=== PATIENT | male | born 1945 | race Caucasian/White ===

== ENCOUNTER 2018-08-06 10:01 | Outpatient (CLI) | payer MEDICARE, BC, SELFPAY ==
[2018-08-06 12:50] LABS: Anion Gap 8.1 mmol/L (3-11); BUN 20 mg/dL (7-18); CO2 28.9 mmol/L (21.0-32.0); CREATININE 1.31 mg/dL (0.70-1.30); Calcium 9.3 mg/dL (8.5-10.1); Chloride 104 mmol/L (98-107); Estimated GFR 53.64 (mL/min/1.73m2); Glucose 98 mg/dL (70-100); Potassium 4.5 mmol/L (3.5-5.1); Sodium 141 mmol/L (136-145); Uric Acid 6.2 mg/dL (3.5-7.2)
== END 2018-08-06 10:21 ==
PROVIDERS: PCP Family Medicine; Visit Provider Family Medicine
DX: I10 Essential (primary) hypertension (principal); M10.9 Gout, unspecified
CPT/HCPCS: 36415; 80048; 84550

== ENCOUNTER 2019-07-31 02:37 | Outpatient (CLI) | payer MEDICARE, BC, SELFPAY ==
[2019-07-31 12:11] LABS: Anion Gap 8.4 mmol/L (3-11); BUN 24 mg/dL (7-18); CO2 28.6 mmol/L (21.0-32.0); CREATININE 1.31 mg/dL (0.70-1.30); Calcium 9.5 mg/dL (8.5-10.1); Chloride 108 mmol/L (98-107); Estimated GFR 53.49 (mL/min/1.73m2); Glucose 102 mg/dL (74-106); Potassium 4.9 mmol/L (3.5-5.1); Sodium 145 mmol/L (136-145)
== END 2019-07-31 02:57 ==
PROVIDERS: PCP Family Medicine; Visit Provider Family Medicine
DX: I10 Essential (primary) hypertension (principal)
CPT/HCPCS: 36415; 80048

== ENCOUNTER 2020-03-12 13:46 | Emergency (ER) | payer MEDICARE, BC, SELFPAY ==
[2020-03-12] VITALS (40 sets, daily range): BP systolic 146–174; BP diastolic 59–113; PULSE 44–62; RESP 7–18; TEMP 36.1; O2SAT 93–100
--- NOTE | 2020-03-12 13:30 | RT.EKG_ITS ---
APPROVED REPORT Exam: Resting ECG Patient Location: E HR:47 bpm ECG Measurements Heart Rate 47 AXIS VT 189 P 69 QRSd 86 QRS 53 QT 423 T 85 QTc 376 Conclusion Sinus bradycardia...rate< 60. 1mm ST depression in V2-5 and less than 1mm ST depression in I, aVL, V6. TWI in aVL. Less than 1mm ST elevation in lead III.
--- NOTE | 2020-03-12 14:01 | ED.GENADUL_ITS ---
Discharge Plan Disposition Patient Disposition: [facility] Condition: Serious Discharge Details Chief Complaint: Dizzy/Sync Clinical Impression: NSTEMI (non-ST elevated myocardial infarction) Primary Care Provider: Abdoulaye Carlton ED Provider: Yen Newby Home Meds and New Rx's Prescriptions: No Action cholecalciferol (vitamin D3) 1,000 unit capsule 1,000 unit PO DAILY RF: 0 Indomethacin [Indomethacin ER] 75 MG CAPSULE.ER 75 mg PO DAILY Qty: 30 RF: 1 Probiotic 1 EACH capsule 1 ea PO DAILY RF: 0 aspirin 81 MG tablet,chewable 81 mg PO DAILY RF: 0 ibuprofen 800 MG tablet 800 mg PO TID Qty: 90 RF: 1 atorvastatin 20 mg tablet 20 mg PO DAILY PRN (Reason: hyperlipidemia) Qty: 90 RF: 4 losartan [Cozaar] 100 mg tablet 100 mg PO DAILY Qty: 90 RF: 3 Discharge Data Discharge Date/Time-TO BE ENTERED AT DEPARTURE: 03/12/20 17:50 Medical Decision Making 1400 -- 74-year-old male with a history of hypertension presents for diaphoresis, dizziness and nausea that started at 1 PM today. Denies any complaint of chest pain or shortness of breath. EKG notes a rate of 47, sinus with [address] depression in V2 to V5 with less than [address] depression in 1, aVL, V6, with questionable less than [address] elevation in lead III and T wave inversion in aVL. Concern for ACS. Also consider GI viral illness, vertigo, electrolyte abnormality, arrhythmia. Will place an IV, bolus IV fluids, screening labs, portable chest x-ray and reassess. Labs reviewed. Troponin 0.18. Will start heparin bolus and drip. 1445 --discussed with [facility] cardiology -appears consistent with NSTEMI. Would like 300 mg Plavix p.o. Accepts patient for transfer. Accepting physician Dr. Strong. Repeat EKG obtained prior to transfer which notes slight increase in ST elevation in lead III and slight improvement in ST depression in V2 to V4. Slight increase in troponin 0.22. Patient hemodynamically stable prior to transfer. Medical Records Medical records reviewed: Yes I reviewed the patient's medical records. Imaging Data Radiologic Study: Radiologist's impression: XR Chest, 1 View Exam date and time: 03/12/2020 3:02 PM Age: 74 years old Clinical indication: Other: Nausea, dizziness, R/O acute disease TECHNIQUE: Imaging protocol: XR of the chest Views: 1 view. COMPARISON: No relevant prior studies available. FINDINGS: Lungs: Unremarkable. No consolidation. Pleural space: Unremarkable. No pleural effusion. No pneumothorax. Heart/Mediastinum: Unremarkable. No cardiomegaly. Bones/joints: Unremarkable. IMPRESSION: No acute findings. Lab Data Lab results reviewed: Yes I reviewed the patient's lab results. Labs: Laboratory Tests Range/Units 03/12/20 03/12/20 03/12/20 13:40 13:40 13:40 WBC (4.4-10.8) 10^3/uL 5.55 RBC (4.36-5.78) 10^6/uL 4.71 Hgb (13.5-17.5) g/dL 13.9 Hct (40.0-50.0) % 41.7 MCV (80-95) fL 88.5 MCH (27.0-33.0) pg 29.5 MCHC (32.0-36.0) % 33.3 RDW (11.8-14.1) % 13.4 Plt Count (130-400) 10^3/uL 150 MPV (8.0-11.0) fL 10.3 Immature Gran % 0.2 Neutrophils % 62.2 Lymphocytes % 22.9 Monocytes % 11.2 Eosinophils % 3.1 Basophils % 0.4 Nucleated RBC % % 0 Absolute Neutrophils (1.2-6.7) 10^3/uL 3.46 Absolute Lymphocytes (1.2-3.4) 10^3/uL 1.27 Absolute Monocytes (0.1-0.8) 10^3/uL 0.62 Absolute Eosinophils (0.0-0.7) 10^3/uL 0.17 Absolute Basophils (0.0-0.2) 10^3/uL 0.02 PT (9.3-11.0) sec 10.4 INR (0.9-1.1) 1.0 APTT (21.0-31.4) sec 24.7 Sodium (136-145) mmol/L 140 Potassium (3.5-5.1) mmol/L 4.3 Chloride (98-107) mmol/L 106 Carbon Dioxide (21.0-32.0) mmol/L 26.8 Anion Gap (3-11) mmol/L 7.2 BUN (7-18) mg/dL 26 H Creatinine (0.70-1.30) mg/dL 1.41 H Estimated GFR/1.73 m2 (mL/min/1.73m2) 49.00 Glucose (74-106) mg/dL 120 H Calcium (8.5-10.1) mg/dL 9.1 Magnesium (1.8-2.4) mg/dL 2.0 Total Bilirubin (0.2-1.0) mg/dL 0.6 AST (15-37) U/L 31 ALT (16-63) U/L 36 Alkaline Phosphatase (46-116) U/L 74 Troponin I (<0.06) ng/mL 0.18 H* Total Protein (6.4-8.2) g/dL 6.8 Albumin (3.4-5.0) g/dL 3.6 Lipase (73-393) U/L Range/Units 03/12/20 03/12/20 13:40 17:45 WBC (4.4-10.8) 10^3/uL RBC (4.36-5.78) 10^6/uL Hgb (13.5-17.5) g/dL Hct (40.0-50.0) % MCV (80-95) fL MCH (27.0-33.0) pg MCHC (32.0-36.0) % RDW (11.8-14.1) % Plt Count (130-400) 10^3/uL MPV (8.0-11.0) fL Immature Gran % Neutrophils % Lymphocytes % Monocytes % Eosinophils % Basophils % Nucleated RBC % % Absolute Neutrophils (1.2-6.7) 10^3/uL Absolute Lymphocytes (1.2-3.4) 10^3/uL Absolute Monocytes (0.1-0.8) 10^3/uL Absolute Eosinophils (0.0-0.7) 10^3/uL Absolute Basophils (0.0-0.2) 10^3/uL PT (9.3-11.0) sec INR (0.9-1.1) APTT (21.0-31.4) sec Sodium (136-145) mmol/L Potassium (3.5-5.1) mmol/L Chloride (98-107) mmol/L Carbon Dioxide (21.0-32.0) mmol/L Anion Gap (3-11) mmol/L BUN (7-18) mg/dL Creatinine (0.70-1.30) mg/dL Estimated GFR/1.73 m2 (mL/min/1.73m2) Glucose (74-106) mg/dL Calcium (8.5-10.1) mg/dL Magnesium (1.8-2.4) mg/dL Total Bilirubin (0.2-1.0) mg/dL AST (15-37) U/L ALT (16-63) U/L Alkaline Phosphatase (46-116) U/L Troponin I (<0.06) ng/mL 0.22 H* Total Protein (6.4-8.2) g/dL Albumin (3.4-5.0) g/dL Lipase (73-393) U/L 386 ECG Data Attestation: I personally reviewed and interpreted this ECG (s) as follows: Interpretation: #1 -- rate of 47, sinus, [address] depression in V2 through V5 with less than [address] depression in 1, aVL and V6. T wave inversion in aVL. Questionable less than [address] elevation in lead III. TN 189. QRS 86. QTc 376. #2 -- rate of 64, sinus, [address] elevation in lead III. Less than [address] depression in V2 through V5, 1 and aVL. T wave inversion in aVL. TN 170. QRS 89. QTc 409. HPI General Mode of arrival: ambulatory . Date/Time Provider Initiated Documentation: 03/12/20 13:49 . Limitations to Documentation: no limitations . Information obtained by: patient . HPI Narrative: Patient is a 74-year-old male with a history of hypertension who presents for diaphoresis, dizziness and nausea that started at 1 PM while sitting at home today. Patient states he has been sleeping well and denies any recent illness. He states when he awoke this morning he felt fine and was able to eat breakfast. He cannot describe whether this is a spinning or lightheadedness but feels that it is more lightheaded. He denies any recent travel, recent known sick contacts, fever, cough, chest pain, shortness of breath, abdominal pain, vomiting, diarrhea. Patient was given aspirin in route per EMS. Related Data Home Medications Medication Instructions Recorded Confirmed lactobacillus comb no.10 1 ea PO DAILY 07/08/17 03/12/20 [Probiotic] aspirin 81 mg PO DAILY tab-cap 07/11/17 03/12/20 ibuprofen 800 mg PO TID #90 tab-cap 01/16/18 03/12/20 cholecalciferol (vitamin D3) 25 1,000 unit PO DAILY 01/15/19 03/12/20 mcg (1,000 unit) capsule atorvastatin 20 mg tablet 20 mg PO DAILY PRN #90 tab 10/05/19 03/12/20 losartan 100 mg tablet 100 mg PO DAILY #90 tab-cap 02/23/20 03/12/20 Previous Rx's Medication Instructions Recorded ibuprofen 800 mg PO TID #90 tab-cap 01/16/18 atorvastatin 20 mg tablet 20 mg PO DAILY PRN #90 tab 10/05/19 losartan 100 mg tablet 100 mg PO DAILY #90 tab-cap 02/23/20 Allergies Allergy/AdvReac Type Severity Reaction Status Date / Time lisinopril AdvReac Unknown COUGH Verified 03/12/20 13:54 General Stated Complaint: Dizzy/Sync MATTHEW: 2 Review of Systems All systems reviewed & are unremarkable except as noted in HPI and below Constitutional Constitutional: Reports as per HPI, Denies chills and Denies fever(s) Eyes Eyes: Denies blurry vision ENT Ears, Nose, Mouth, and Throat: Reports dizziness, Denies sore throat and Denies throat swelling Cardiovascular Cardiovascular: Denies chest pain and Denies dyspnea Respiratory Respiratory: Denies cough and Denies dyspnea Gastrointestinal Gastrointestinal: Denies abdominal pain, Denies diarrhea, Reports nausea and Denies vomiting Genitourinary Genitourinary: Denies hematuria and Denies dysuria Musculoskeletal Musculoskeletal: Denies back pain and Denies numbness Integumentary/Breasts Skin/Breast: Denies lesions and Denies rash Neurologic Neurologic: Reports dizziness, Denies localized weakness and Denies numbness Allergic/Immunologic Allergic/Immunologic: Denies throat swelling COUNT INCLUDES THE [facility] Medical History (Updated 03/12/20 @ 15:19 by Yen Newby DO) Left inguinal hernia (Inactive 07/09/16) Subarachnoid hemorrhage (Inactive 04/15/12) Syncope and collapse (Inactive 10/25/08) Surgical History (Updated 07/21/19 @ 12:07 by Abdoulaye Carlton MD) TOE REPAIR (~1959) Tonsillectomy and adenoidectomy (~1951) Vasectomy (~1974) Family History (Updated 07/24/19 @ 10:45 by Chris Osborn) Mother , Age 94 OLD AGE No problems noted. Father , AGE 97 OLD AGE Essential hypertension Hyperlipidemia Sister No problems noted. Brother Essential hypertension Hypercholesterolemia Myocardial infarction Smoker Brother No problems noted. Brother No problems noted. Son No problems noted. Son No problems noted. Brother No problems noted. Maternal Grandfather No problems noted. Paternal Grandfather , age 91 No problems noted. Maternal Grandmother No problems noted. Paternal Grandmother , age 80 No problems noted. Social History (Updated 07/24/19 @ 10:43 by Chris Osborn) Smoking/Tobacco Use Status: Former Tobacco Use Quit Date: 07/22/73 Tobacco: How many years used: 10 Alcohol Intake: current Alcohol Intake frequency: 0-2 drinks per day Alcohol type: beer and wine Drug use: Never Substance use type: does not use Caregiver/Support person: No Household members: spouse Housing: house Communication Needs: None Do you need help understanding health information?: Never Pets and animals: No Sexually active: Yes Do you think of yourself as: straight/heterosexual Current gender identity: male What is your relationship status?: How often do you talk on the phone with friends or family?: once per week How often do you get together with friends or relatives?: three or more times per week How often do you attend oriental orthodox or mandaen services?: 1-3 times per year Do you belong to any clubs or organized social groups?: yes Panel score (0-1 are the most socially isolated patients): 3 What type of physical activity do you participate in: other Duration: 30-45 minutes/day Frequency: 3-4 times per week Carol/Yazidi: Rastafari Special carol needs: No Seatbelt use: always Helmet use: Yes Helmet use: always Drive intox or ride w/intox pharmacy delivery driver: No Do you feel safe at home: Yes Do you feel safe in your relationship?: Yes Exam Const General: cooperative, healthy appearing and no acute distress HENMT Head: normal to inspection Face and sinus: normal facial exam Eyes General: appearance normal, both eyes and all related structures EOM: EOM intact bilaterally Neck Neck: normal visual inspection and No submandibular swelling Lymphatic: no lymphadenopathy noted Chest Chest: normal inspection of the chest and no tenderness Resp Effort & Inspection: normal respiratory effort and able to speak in complete sentences Auscultation: clear to auscultation bilaterally Cardio Rate: bradycardic Rhythm: regular rhythm GI Inspection: normal to inspection Palpation: soft, not firm, not rigid and nontender Auscultation: normal bowel sounds Skin General skin exam: no rashes or lesions noted Neuro General: patient alert, patient awake and patient oriented x3 Cognition: normal cognition Speech: speech normal Motor: muscle tone normal throughout Sensory Exam: no sensory deficits noted Extrem General: normal to inspection, full ROM, capillary refill normal, no calf tenderness bilaterally and no edema Psych Appearance: grossly normal Mental Status: mental status grossly normal Speech and Movement: speech and movement normal Affect: normal affect Course Vital Signs Vital signs: Vital Signs Temperature 97.0 F L 03/12/20 13:50 Pulse 49 L 03/12/20 13:50 Respiratory Rate 15 03/12/20 13:50 Blood Pressure 168/73 H 03/12/20 13:50 Pulse Oximetry 96 03/12/20 13:50 Temperature 97.0 F L 03/12/20 13:50 Temperature Source Temporal Artery Scan 03/12/20 13:50 Pulse 49 L 03/12/20 13:50 Respiratory Rate 15 03/12/20 13:50 Respiratory Effort Non-Labored 03/12/20 13:53 Blood Pressure 168/73 H 03/12/20 13:50 Blood Pressure Position Supine 03/12/20 13:50 Pulse Oximetry 96 03/12/20 13:50 Oxygen Delivery Method Room Air 03/12/20 13:50 Oxygen Flow Rate 0 03/12/20 13:50 Pain Level 0 03/12/20 13:50
[2020-03-12 14:07] LABS: Abs Immature Grans 0.01 10^3/uL (0.0-0.06); Absolute Basophil Count 0.02 10^3/uL (0.0-0.2); Absolute Eosinophil Count 0.17 10^3/uL (0.0-0.7); Absolute Lymphocyte Count 1.27 10^3/uL (1.2-3.4); Absolute Monocyte Count 0.62 10^3/uL (0.1-0.8); Absolute Neutrophil Count 3.46 10^3/uL (1.2-6.7); Basophils % 0.4; Eosinophils % 3.1; HCT 41.7 % (40.0-50.0); HGB 13.9 g/dL (13.5-17.5); Immature Grans % 0.2; Lymphocytes % 22.9; MCH 29.5 pg (27.0-33.0); MCHC 33.3 % (32.0-36.0); MCV 88.5 fL (80-95); MPV 10.3 fL (8.0-11.0); Monocytes % 11.2; Neutrophils % 62.2; Nucleated RBC 0 %; Platelet Count 150 10^3/uL (130-400); RBC 4.71 10^6/uL (4.36-5.78); RDW 13.4 % (11.8-14.1); RDW-SD 43.8 fL; WBC 5.55 10^3/uL (4.4-10.8)
[2020-03-12 14:19] LABS: PTT Activated 24.7 sec (21.0-31.4); Prothrombin Time 10.4 sec (9.3-11.0)
[2020-03-12 14:22] LABS: ALT 36 U/L (16-63); AST 31 U/L (15-37); Albumin 3.6 g/dL (3.4-5.0); Alkaline Phosphatase 74 U/L (46-116); Anion Gap 7.2 mmol/L (3-11); BUN 26 mg/dL (7-18); Bilirubin, Total 0.6 mg/dL (0.2-1.0); CO2 26.8 mmol/L (21.0-32.0); CREATININE 1.41 mg/dL (0.70-1.30); Calcium 9.1 mg/dL (8.5-10.1); Chloride 106 mmol/L (98-107); Glucose 120 mg/dL (74-106); Potassium 4.3 mmol/L (3.5-5.1); Sodium 140 mmol/L (136-145); Total Protein 6.8 g/dL (6.4-8.2)
[2020-03-12 14:24] LABS: Troponin I 0.18 ng/mL (<0.06)
[2020-03-12] MEDS: Normal Saline 1,000 ML 1000 ML IV (14:28)
[2020-03-12] MEDS: Ondansetron 4 MG/2 ML VIAL IVP (14:29)
--- NOTE | 2020-03-12 15:01 | DI.RAD_ITS ---
EXAM: XR PORTABLE CHEST AP CLINICAL HISTORY: nausea, dizziness, r/o acute disease. TECHNIQUE: 2D digital imaging was performed. COMPARISON: CR CHEST 2 VIEWS PA,LAT from 03/28/2012 FINDINGS: LUNGS: Clear. No pleural abnormality seen. HEART: Normal. MEDIASTINUM: Normal. OTHER FINDINGS: None. IMPRESSION: No acute pulmonary findings. DATA REPOSITORY: RADIATION DOSE DELIVERED: Total DLP
--- NOTE | 2020-03-12 15:17 | DI.VRAD_ITS ---
PROCEDURE INFORMATION: Exam: XR Chest, 1 View Exam date and time: 03/12/2020 3:02 PM Age: 74 years old Clinical indication: Other: Nausea, dizziness, R/O acute disease TECHNIQUE: Imaging protocol: XR of the chest Views: 1 view. COMPARISON: No relevant prior studies available. FINDINGS: Lungs: Unremarkable. No consolidation. Pleural space: Unremarkable. No pleural effusion. No pneumothorax. Heart/Mediastinum: Unremarkable. No cardiomegaly. Bones/joints: Unremarkable. IMPRESSION: No acute findings. Dictated and Authenticated by: Brock Sykes MD. Ordering:RIGOBERTO Barlow MD
[2020-03-12] MEDS: Clopidogrel 300 MG TAB PO (15:21)
[2020-03-12 15:36] LABS: Lipase 386 U/L (73-393)
--- NOTE | 2020-03-12 17:30 | RT.EKG_ITS ---
APPROVED REPORT Exam: Resting ECG Patient Location: E HR:64 bpm ECG Measurements Heart Rate 64 AXIS HI 178 P 60 QRSd 89 QRS 54 QT 397 T 92 QTc 409 Conclusion Sinus rhythm...normal P axis, V-rate 60- 99 Nonspecific T abnrm, anterolateral leads...T <-0.10mV, I aVL V2-V6 Slight increase in ST elevation in lead III. Some improvement in ST depression in lead V2-4.
[2020-03-12 18:06] LABS: Troponin I 0.22 ng/mL (<0.06)
== END 2020-03-12 17:50 | disposition short-term general hospital (02) ==
LOC: ER 16:17
PROVIDERS: Emergency Provider Physician Assistant; PCP Family Medicine
DX: I21.4 Non-ST elevation (NSTEMI) myocardial infarction (principal); R42 Dizziness and giddiness; R11.0 Nausea; R61 Generalized hyperhidrosis; I10 Essential (primary) hypertension
CPT/HCPCS: 36415; 36416; 80053; 82962; 83690; 93005; 96361; 96365; 96366; 96375; 96376; 99291; 71045; 83735; 84484; 85025; 85610; 85730; 93010; J2405

== ENCOUNTER 2020-04-01 04:05 | Outpatient (CLI) | payer MEDICARE, BC, SELFPAY ==
--- NOTE | 2020-04-01 06:30 | DI.US_ITS ---
EXAM: US CAROTID CLINICAL HISTORY: F/U MILD CAROTID STENOSIS, I65.29. TECHNIQUE: Ultrasound carotids performed using grayscale, color-flow, and spectral Doppler imaging. COMPARISON: MR MRA NECK WO from 06/03/2017 MR MRA HEAD WO from 06/03/2017 MR MRI - BRAIN WO CONTRAST from 06/03/2017 FINDINGS: RIGHT CAROTID ARTERY: Plaque: [id number] soft plaque from the common carotid bulb in to the proximal internal carotid artery. LEFT CAROTID ARTERY: Plaque: Mild soft plaque in the common carotid bulb and proximal internal carotid artery. VERTEBRAL ARTERIES: Antegrade flow. Measurements: R Bulb: 96 PS/24 ED R CCA: 103 PS / 24 ED R ECA: 112 PS / 11 ED R ICA Prox: 165 PS /30 ED R ICA Mid: 112 PS / 27 ED R ICA Distal: 100 PS /34 ED R Vert: 59 PS / 17 ED R SVR: 1.6 L Bulb: 82 PS /21 ED L CCA: 92 PS / 21 ED L ECA: 79 PS /8 ED L ICA Prox:62 PS / 22 ED L ICA Mid: 79PS / 29 ED L ICA Distal: 102 PS / 42 ED L Vert: 62 PS / 23 ED L SVR: 1.1 IMPRESSION: Left: Mild soft plaque. No evidence for hemodynamically significant carotid stenosis. Right: Internal carotid artery [id number] soft plaque with systolic velocity elevation consiste nt with 50-69 percent stenosis. Criteria for Carotid Stenosis: Normal: ICA PSV <125 cm/s no plaque or intimal thickening is visible. <50% stenosis: ICA PSV <125 cm/s and plaque or intimal thickening is visible. 50-69% stenosis: ICA PSV is 125-250 cm/s and plaque is visible. >70% stenosis to near occlusion: ICA PSV >250 cm/s with visible plaque and luminal narrowing. DATA REPOSITORY:
== END 2020-04-01 04:25 ==
PROVIDERS: PCP Nurse Practitioner; Visit Provider Family Medicine
DX: I65.21 Occlusion and stenosis of right carotid artery (principal)
CPT/HCPCS: U0003; 93880

== ENCOUNTER 2020-04-01 08:32 | Outpatient (CLI) | payer MEDICARE, BC, SELFPAY ==
[2020-04-02 20:29] LABS: COVID-19 RT-PCR Result NEGATIVE (Negative)
== END 2020-04-01 08:52 ==
PROVIDERS: PCP Nurse Practitioner; Visit Provider Family Medicine
DX: Z11.59 Encounter for screening for other viral diseases (principal); Z01.818 Encounter for other preprocedural examination
CPT/HCPCS: U0003

== ENCOUNTER → 2020-04-08 09:29 | Outpatient (BNVA) | payer MEDICARE, BC, SELFPAY | PROVIDERS: PCP Nurse Practitioner; Referring Provider Family Medicine; Visit Provider Internal Medicine Cardiovascular Disease | DX: I21.4 Non-ST elevation (NSTEMI) myocardial infarction (principal); I10 Essential (primary) hypertension; Z95.818 Presence of other cardiac implants and grafts; Z79.02 Long term (current) use of antithrombotics/antiplatelets | CPT/HCPCS: 99204; 99215 ==

== ENCOUNTER 2020-04-20 13:16 | Outpatient (RCR) | payer MEDICARE, BC, SELFPAY | END 2020-04-20 23:59 | disposition home or self-care (01) | LOC: CR 13:16 | PROVIDERS: PCP Nurse Practitioner; Visit Provider Family Medicine | DX: I25.2 Old myocardial infarction (principal); Z51.89 Encounter for other specified aftercare | CPT/HCPCS: S9472 ==

== ENCOUNTER 2020-05-20 11:00 | Outpatient (RCR) | payer MEDICARE, BC, SELFPAY | END 2020-05-21 23:59 | disposition home or self-care (01) | LOC: CR 11:00 | PROVIDERS: PCP Nurse Practitioner; Visit Provider Family Medicine | DX: I25.2 Old myocardial infarction (principal); Z51.89 Encounter for other specified aftercare | CPT/HCPCS: S9472 ==

== ENCOUNTER 2020-05-22 01:23 | Outpatient (RCR) | payer MEDICARE, BC, SELFPAY | END 2020-06-20 23:59 | disposition home or self-care (01) | LOC: CR 01:23 | PROVIDERS: PCP Nurse Practitioner; Visit Provider Family Medicine | DX: I25.2 Old myocardial infarction (principal); Z51.89 Encounter for other specified aftercare | CPT/HCPCS: S9472 ==

== ENCOUNTER 2020-08-03 04:48 | Outpatient (CLI) | payer MEDICARE, BC, SELFPAY ==
[2020-08-03 10:19] LABS: Hemoglobin A1C 5.3 % (<5.7)
[2020-08-03 10:52] LABS: CREATININE 1.82 mg/dL (0.70-1.30); Calculated LDL 59 mg/dL (<100); Cholesterol 111 mg/dL (<200); HDL Cholesterol 37 mg/dL (40-60); Potassium 4.6 mmol/L (3.5-5.1); Triglyceride 76 mg/dL (<150)
== END 2020-08-03 05:08 ==
PROVIDERS: PCP Nurse Practitioner; Visit Provider Nurse Practitioner
DX: E78.5 Hyperlipidemia, unspecified (principal); I10 Essential (primary) hypertension; R73.03 Prediabetes
CPT/HCPCS: 36415; 80061; 82565; 83036; 84132

== ENCOUNTER 2020-09-21 16:13 | Outpatient (REF) | payer MEDICARE, BC, SELFPAY ==
[2020-09-21 22:08] LABS: Abs Immature Grans 0.01 10^3/uL (0.0-0.06); Absolute Basophil Count 0.02 10^3/uL (0.0-0.2); Absolute Eosinophil Count 0.26 10^3/uL (0.0-0.7); Absolute Lymphocyte Count 0.75 10^3/uL (1.2-3.4); Absolute Monocyte Count 0.61 10^3/uL (0.1-0.8); Absolute Neutrophil Count 4.79 10^3/uL (1.2-6.7); Basophils % 0.3; HCT 37.9 % (40.0-50.0); HGB 12.6 g/dL (13.5-17.5); Immature Grans % 0.2; Lymphocytes % 11.6; MCH 30.3 pg (27.0-33.0); MCHC 33.2 % (32.0-36.0); MCV 91.1 fL (80-95); MPV 11.1 fL (8.0-11.0); Monocytes % 9.5; Neutrophils % 74.4; Nucleated RBC 0 %; Platelet Count 168 10^3/uL (130-400); RBC 4.16 10^6/uL (4.36-5.78); RDW 13.7 % (11.8-14.1); RDW-SD 46.2 fL; WBC 6.44 10^3/uL (4.4-10.8)
[2020-09-21 22:21] LABS: ALT 35 U/L (16-63); AST 26 U/L (15-37); Albumin 3.8 g/dL (3.4-5.0); Alkaline Phosphatase 93 U/L (46-116); Anion Gap 9.4 mmol/L (3-11); BUN 38 mg/dL (7-18); Bilirubin, Total 0.6 mg/dL (0.2-1.0); CO2 25.6 mmol/L (21.0-32.0); CREATININE 2.1 mg/dL (0.70-1.30); Calcium 8.8 mg/dL (8.5-10.1); Chloride 109 mmol/L (98-107); Estimated GFR 30.94 (mL/min/1.73m2); Glucose 100 mg/dL (74-106); Potassium 4.5 mmol/L (3.5-5.1); Sodium 144 mmol/L (136-145); Total Protein 6.8 g/dL (6.4-8.2)
[2020-09-22 17:31] LABS: PSA, Diagnostic 5.8 ng/mL (0.0-6.5)
== END 2020-09-21 16:14 | disposition home or self-care (01) ==
LOC: LBN 16:13
PROVIDERS: PCP Nurse Practitioner; Visit Provider Emergency Medicine
DX: C61 Malignant neoplasm of prostate (principal); R19.00 Intra-abdominal and pelvic swelling, mass and lump, unspecified site
CPT/HCPCS: 80053; 84153; 85025

== ENCOUNTER 2020-09-22 13:35 | Emergency (ER) | payer MEDICARE, BC, SELFPAY ==
[2020-09-22 13:44] VITALS: BP 212/90; PULSE 56; RESP 16; TEMP 36.3; O2SAT 95
--- NOTE | 2020-09-22 14:05 | W.ED.GENAD ---
Discharge Plan Disposition Patient Disposition: HOME Condition: Stable Discharge Details Clinical Impression: Urinary retention Primary Care Provider: Kate Lopes ED Provider: Roman Young Home Meds and New Rx's Prescriptions: Continued cholecalciferol (vitamin D3) 25 mcg (1,000 unit) capsule 2,000 unit PO DAILY RF: 0 atorvastatin 80 mg tablet 80 mg PO DAILY Qty: 90 RF: 4 clopidogrel 75 mg tablet 75 mg PO DAILY Qty: 90 RF: 4 losartan [Cozaar] 100 mg tablet 100 mg PO DAILY Qty: 90 RF: 3 Indomethacin [Indomethacin ER] 75 MG CAPSULE.ER 75 mg PO DAILY Qty: 30 RF: 1 aspirin 81 MG tablet,chewable 81 mg PO DAILY RF: 0 Probiotic 20 billion cell capsule 20,000 mmu cells PO .QOD RF: 0 nitroglycerin 0.4 mg tablet, sublingual 0.4 mg SL Q5M PRN (Reason: chest pain) Qty: 30 RF: 2 metoprolol succinate 25 mg tablet extended release 24 hr 25 mg PO HS RF: 0 Discharge Instructions Instructions: Urinary Retention in Men (ED), Plummer Catheter Placement and Care (ED) Additional Instructions: Plummer catheter placed and you drained over 3300 cc of urine. Please watch for new or worsening symptoms and return immediately to the ER. Otherwise I recommend contacting your primary care provider who sent her here to the ER in the first place. They will set you up with outpatient urology follow-up for your ongoing symptoms. You are being discharged from the ER with a Plummer catheter in place, management of the Plummer catheter and teaching was given. Medical Decision Making 74-year-old gentleman who had an outpatient work-up initiated, outpatient CT obtained today which revealed enlarged prostate causing urinary bladder outlet obstruction with a markedly distended urinary bladder. We received a call from Dr. Brown requesting that a Plummer catheter be placed and she will have the patient up with outpatient urology in follow-up. The patient was able to give a urine sample, bladder scan post void was greater than 999. Indwelling Plummer catheter placed, over 3300 cc of urine drained. Patient did present quite hypertensive however given his impressive urinary retention I am not surprised. Blood pressure was trending downward after the catheter was placed and urine drained. Upon reviewing his record from yesterday it does appear as though his primary care office is aware of his hypertension and plans to follow this. Patient remains asymptomatic. He was given teaching of his Plummer catheter and how to care for it. His primary care team will be expediting his outpatient work-up for his ongoing symptoms through urology. He was encouraged to return to the ER for new or worsening symptoms. Patient has no additional questions or concerns upon discharge. Medical Records Medical records reviewed: Yes I reviewed the patient's medical records. Imaging Data Radiologic Study: Attestation: I personally reviewed and interpreted this imaging study as follows: Imaging: CT Scan Radiologist's impression: CT imaging of abdomen and pelvis read by radiology as enlarged prostate gland causing urinary bladder outlet obstruction with a markedly distended urinary bladder present. These findings cause marked hydroureteronephrosis and delayed enhancement of the kidneys. The prostate gland is heterogeneous and a prostate mass should be considered. Urology consult is recommended for further evaluation. Findings consistent with hepatic hemangioma. Lab Data Lab results reviewed: Yes I reviewed the patient's lab results. Lab results narrative: Laboratory Tests Range/Units 09/22/20 14:00 Urine Color (Yellow) Yellow Urine Clarity (Clear) Sl cloudy Urine pH (5-8) 5.5 Ur Specific [place] (1.005-1.025) 1.015 Urine Protein (Negative) mg/dL Negative Urine Ketones (Negative) mg/dL Negative Urine Blood (Negative) Negative Urine Nitrite (Negative) Negative Urine Bilirubin (Negative) Negative Urine Urobilinogen (Up TO 0.2) EU/dL 0.2 Ur Leukocyte Esterase (Negative) Negative Urine Glucose (Negative) mg/dL Negative HPI General Mode of arrival: ambulatory. Date/Time Provider Initiated Documentation: 09/22/20 14:03. Limitations to Documentation: no limitations. Information obtained by: patient. HPI Narrative: This is a 74-year-old gentleman with Shaan history that includes MA, hypertension, hyperlipidemia, sent to the ER for Plummer catheter placement. Patient was seen by his primary care provider, was thought to have an abdominal mass, had recent laboratory values including urinalysis. Was set up for outpatient CT imaging today, CT completed and results were sent to his primary care provider. We received a call from Dr. Brown stating the patient will require a indwelling Plummer catheter for his BPH and urinary retention. Labs have already been obtained, no need to repeat now. They will set the patient up with outpatient urology follow-up for his ongoing symptoms. Patient denies recent illness or trauma. Denies chest pain, abdominal pain, nausea, vomiting, dysuria, hematuria, back pain. Related Data Home Medications Medication Instructions Recorded Confirmed aspirin 81 mg PO DAILY tab-cap 07/11/17 09/22/20 lactobacillus comb no.10 20 20,000 mmu cells PO .QOD cap 03/22/20 09/22/20 billion cell capsule atorvastatin 80 mg tablet 80 mg PO DAILY #90 tab 04/08/20 09/22/20 clopidogrel 75 mg tablet 75 mg PO DAILY #90 tab 04/08/20 09/22/20 losartan 100 mg tablet 100 mg PO DAILY #90 tab-cap 04/08/20 09/22/20 cholecalciferol (vitamin D3) 25 2,000 unit PO DAILY cap 07/26/20 09/22/20 mcg (1,000 unit) capsule nitroglycerin 0.4 mg sublingual 0.4 mg SL Q5M PRN #30 tab 09/16/20 09/22/20 tablet metoprolol succinate 25 mg PO HS 09/22/20 09/22/20 Previous Rx's Medication Instructions Recorded atorvastatin 80 mg tablet 80 mg PO DAILY #90 tab 04/08/20 clopidogrel 75 mg tablet 75 mg PO DAILY #90 tab 04/08/20 losartan 100 mg tablet 100 mg PO DAILY #90 tab-cap 04/08/20 nitroglycerin 0.4 mg sublingual 0.4 mg SL Q5M PRN #30 tab 09/16/20 tablet Allergies Allergy/AdvReac Type Severity Reaction Status Date / Time lisinopril AdvReac Unknown COUGH Verified 09/22/20 13:50 General Stated Complaint: Urinary MATTHEW: 3 Review of Systems Constitutional Constitutional: Denies fever(s) Cardiovascular Cardiovascular: Denies chest pain and Denies dyspnea Respiratory Respiratory: Denies dyspnea Gastrointestinal Gastrointestinal: Denies abdominal pain, Denies nausea and Denies vomiting Genitourinary Genitourinary: Denies hematuria, Reports difficulty urinating, Denies flank pain, Reports nocturia, Denies testicular pain, Denies urinary hesitancy, Reports urinary incontinence and Denies urinary urgency Musculoskeletal Musculoskeletal: Denies back pain Integumentary/Breasts Skin/Breast: Denies rash [facility] Medical History Abdominal mass Gout (06/10/14) Left inguinal hernia (07/09/16) not problematic to pt at this time Smoker Quit 1974 Subarachnoid hemorrhage (04/15/12) Syncope and collapse (10/25/08) Surgical History TOE REPAIR (~1959) Tonsillectomy and adenoidectomy (~1951) Vasectomy (~1974) Family History Mother , Age 94 OLD AGE No problems noted. Father , AGE 97 OLD AGE Essential hypertension Hyperlipidemia Sister No problems noted. Brother Essential hypertension Hypercholesterolemia Myocardial infarction Smoker Brother No problems noted. Brother No problems noted. Son No problems noted. Son No problems noted. Brother No problems noted. Maternal Grandfather No problems noted. Paternal Grandfather , age 91 No problems noted. Maternal Grandmother No problems noted. Paternal Grandmother , age 80 No problems noted. Social History Smoking/Tobacco Use Status: Former Tobacco Use Quit Date: 07/22/73 Tobacco: How many years used: 10 Smoking risk assessment performed?: Yes Alcohol Intake: current Alcohol Intake frequency: 0-2 drinks per day Alcohol type: beer and wine Drug use: Never Substance use type: does not use Caregiver/Support person: No Household members: spouse Housing: house Communication Needs: None Do you need help understanding health information?: Never Pets and animals: No Sexually active: Yes Do you think of yourself as: straight/heterosexual Current gender identity: male What is your relationship status?: How often do you talk on the phone with friends or family?: three or more times per week How often do you get together with friends or relatives?: never How often do you attend tenriism or yarsanism services?: 1-3 times per year Do you belong to any clubs or organized social groups?: yes Panel score (0-1 are the most socially isolated patients): 3 What type of physical activity do you participate in: walking and other Duration: 60-90 minutes/day Frequency: daily Carol/Quaker: Protestant Special carol needs: No Seatbelt use: always Helmet use: Yes Helmet use: always Drive intox or ride w/intox 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 Do you feel safe at home: Yes Do you feel safe in your relationship?: Yes Exam Const General: cooperative, healthy appearing, comfortable and no acute distress Orientation: alert, awake and oriented x3 HENMT Head: normal to inspection, normocephalic and atraumatic Eyes General: appearance normal, both eyes and all related structures Conjunctivae: conjunctivae normal Sclera: sclerae normal Neck Neck: normal visual inspection, trachea midline and supple Resp Effort & Inspection: normal respiratory effort and able to speak in complete sentences Auscultation: clear to auscultation bilaterally Cardio Rate: regular rate Rhythm: regular rhythm GI Inspection: distended Palpation: firm other (Suprapubic region), no guarding, mass (Suprapubic region), no pulsatile masses and nontender Auscultation: normal bowel sounds Male General Exam: Yes normal external exam Penis: normal penis Meatus: meatus normal Scrotum: scrotum normal Testes: normal Back/Spine/Pelvis Back: no CVA tenderness and No back tenderness Skin General skin exam: no rashes or lesions noted Neuro General: patient alert, patient awake, moves all extremities and no focal motor deficits Cognition: normal cognition Speech: speech normal Gait: normal gait Sensory Exam: no sensory deficits noted Psych Appearance: grossly normal Mental Status: mental status grossly normal Course Vital Signs Vital signs: Vital Signs Temperature 36.3 C L 09/22/20 13:44 Pulse 56 L 09/22/20 13:44 Respiratory Rate 16 09/22/20 13:44 Blood Pressure 212/90 H 09/22/20 13:44 Pulse Oximetry 95 09/22/20 13:44 Temperature 36.3 C L 09/22/20 13:44 Temperature Source Oral 09/22/20 13:44 Pulse 56 L 09/22/20 13:44 Respiratory Rate 16 09/22/20 13:44 Respiratory Effort 09/22/20 13:53 Blood Pressure 212/90 H 09/22/20 13:44 Blood Pressure Position Sitting 09/22/20 13:44 Pulse Oximetry 95 09/22/20 13:44 Oxygen Delivery Method Room Air 09/22/20 13:44 Oxygen Flow Rate 0 09/22/20 13:44 Pain Level 0 09/22/20 13:54 Comment 09/22/20 13:44
[2020-09-22 14:10] LABS: Bilirubin Negative (Negative); Blood Negative (Negative); Clarity Sl Cloudy (Clear); Glucose Negative (Negative); Ketones Negative (Negative); Leukocyte Esterase Negative (Negative); Nitrite Negative (Negative); Specific Gravity 1.015 (1.005-1.025); Urobilinogen 0.2 EU/dL (Up TO 0.2); pH 5.5 (5-8)
[2020-09-22] MEDS: Lidocaine 2% Jelly 6 ML SYR (14:35)
[2020-09-22 15:08] VITALS: BP 188/104; PULSE 55; RESP 16; TEMP 36.5; O2SAT 98
== END 2020-09-22 15:44 | disposition home or self-care (01) ==
PROVIDERS: Emergency Provider Physician Assistant; PCP Nurse Practitioner
DX: N40.1 Benign prostatic hyperplasia with lower urinary tract symptoms (principal); R33.8 Other retention of urine
CPT/HCPCS: 51702; 99283; 74177; 81003; 99282

== ENCOUNTER 2020-09-22 13:50 | Outpatient (CLI) | payer MEDICARE, BC, SELFPAY ==
--- NOTE | 2020-09-22 09:15 | DI.CT_ITS ---
EXAM: CT ABDOMEN PELVIS W CLINICAL HISTORY: abd mass, R19.00 TECHNIQUE: Imaging Protocol: Axial computed tomography images with coronal and sagittal reformatted images were created and reviewed CONTRAST MATERIAL: Intravenous: Omnipaque 350 Contrast volume:100 mL Oral: Yes COMPARISON: No exams were available for comparison FINDINGS: ABDOMEN: Lung Bases: Normal where visualized. Liver: Normal density. There are several tiny hypodensities within the liver. They are too small for further characterization but likely reflect small cysts. There is a 2.7 x 2.1 x 1.8 cm mass in the posterior segment of the right lobe of the liver. The lesion shows peripheral enhancement on the art erial images which progressively fills in on the venous phase images. On the 10 minutes delayed imag es, the lesion is completely opacified. The findings are consistent with a hepatic hemangioma. Portal, Superior Mesenteric, and Splenic Veins: Unremarkable. Gallbladder and Biliary Tract: No radiodense calculus or dilation. Pancreas: Normal density, no abnormal calcifications or inflammatory process. Spleen: Normal. Adrenals: No masses seen. Kidneys: Normal size, contour and axis. No renal stones. There is diffuse bilateral delayed enhancem ent of the kidneys with marked dilatation of the renal pelvis and renal ureters all the way to the le mike of the urinary bladder. The urinary bladder is markedly to enlarged distended measuring 17.3 cm transverse by 16.3 cm AP x 24.1 cm craniocaudad. This appears to be due to a markedly enlarged prost ate gland. The prostate gland is heterogeneous and impinges upon the base of the urinary bladder. T his may reflect benign hypertrophy but a prostate mass cannot be excluded. Abdominal Aorta: Abdominal portion non-dilated. Mild atherosclerosis. Bowel: No obstruction or bowel wall thickening. Appendix is unremarkable. Diverticulosis of the desce nding and sigmoid colon is noted but no evidence of acute diverticulitis. Small hiatal hernia. Peritoneal Cavity: No ascites, collection or mesenteric inflammatory response. No free air. Lymph Nodes: Within normal limits. Bones: Degenerative changes of the hips and lumbar spine are noted. Soft Tissues: Small fat containing umbilical hernia. PELVIS: Bladder: Please see the above discussion in the kidneys. Reproductive Organs: Please see the above discussion in the kidneys. Lymph Nodes: Within normal limits. Bones: Within normal limits for the patient's age. IMPRESSION: 1. Enlarged prostate gland causing urinary bladder outlet obstruction with a markedly distended urina ry bladder present. The findings cause marked hydroureteronephrosis and delayed enhancement of the k idneys. The prostate gland is heterogeneous and a prostate mass should be considered. Urology consu lt is recommended for further evaluation. 2. Findings consistent with hepatic hemangioma. 3. Findings were discussed with Dr Brown on the date of the examination. RADIATION DOSE DELIVERED: 1,798.04mGy.cm Total DLP DATA REPOSITORY: All CT scans at this facility are submitted to the National Radiology Data Registry (NRDR) Dose Index Registry (DIR) with the [employer] ([employer]). RADIATION OPTIMIZATION: All CT scans at this facility use at least one of these dose optimization te chniques: automated exposure control; mA and/or kV adjustment per patient size (includes targeted exa ms where dose is matched to clinical indication); or iterative reconstruction.
== END 2020-09-22 14:10 ==
PROVIDERS: PCP Nurse Practitioner; Visit Provider Emergency Medicine
DX: N40.1 Benign prostatic hyperplasia with lower urinary tract symptoms; N13.8 Other obstructive and reflux uropathy
CPT/HCPCS: 74177

== ENCOUNTER → 2020-09-30 08:21 | Outpatient (BNVA) | payer MEDICARE, BC, SELFPAY | PROVIDERS: PCP Nurse Practitioner; Referring Provider Nurse Practitioner; Visit Provider Urology | DX: R33.8 Other retention of urine (principal); N13.30 Unspecified hydronephrosis | CPT/HCPCS: 99204; 99213 ==

== ENCOUNTER 2020-10-06 02:42 | Outpatient (CLI) | payer MEDICARE, BC, SELFPAY ==
[2020-10-06 11:17] LABS: Anion Gap 7.5 mmol/L (3-11); BUN 40 mg/dL (7-18); CO2 27.5 mmol/L (21.0-32.0); CREATININE 1.7 mg/dL (0.70-1.30); Calcium 9.2 mg/dL (8.5-10.1); Chloride 105 mmol/L (98-107); Estimated GFR 39.49 (mL/min/1.73m2); Glucose 108 mg/dL (74-106); Potassium 4.6 mmol/L (3.5-5.1); Sodium 140 mmol/L (136-145)
== END 2020-10-06 02:43 | disposition home or self-care (01) ==
PROVIDERS: PCP Nurse Practitioner; Visit Provider Emergency Medicine
DX: N13.30 Unspecified hydronephrosis (principal); R33.8 Other retention of urine
CPT/HCPCS: 36415; 80048; 99212

== ENCOUNTER → 2020-10-07 12:23 | Outpatient (BNVA) | payer MEDICARE, BC, SELFPAY | PROVIDERS: PCP Nurse Practitioner; Referring Provider Nurse Practitioner; Visit Provider Urology | DX: R33.8 Other retention of urine (principal) | CPT/HCPCS: 99212; 99442 ==

== ENCOUNTER → 2020-10-10 11:31 | Outpatient (BNVA) | payer MEDICARE, BC, SELFPAY | PROVIDERS: PCP Nurse Practitioner; Referring Provider Nurse Practitioner; Visit Provider Internal Medicine Cardiovascular Disease | DX: I25.2 Old myocardial infarction (principal); N13.30 Unspecified hydronephrosis; Z79.01 Long term (current) use of anticoagulants; Z95.818 Presence of other cardiac implants and grafts; I10 Essential (primary) hypertension | CPT/HCPCS: 99214 ==

== ENCOUNTER → 2020-11-09 11:22 | Outpatient (BNVA) | payer MEDICARE, BC, SELFPAY | PROVIDERS: PCP Nurse Practitioner; Referring Provider Nurse Practitioner; Visit Provider Nurse Practitioner Gerontology | DX: R33.8 Other retention of urine (principal) | CPT/HCPCS: 99214 ==

== ENCOUNTER 2020-11-09 13:27 | Outpatient (REF) | payer MEDICARE, BC, SELFPAY ==
[2020-11-09 14:19] LABS: BUN 35 mg/dL (7-18); CREATININE 1.6 mg/dL (0.70-1.30); Estimated GFR 42.35 (mL/min/1.73m2)
== END 2020-11-09 13:28 | disposition home or self-care (01) ==
LOC: LBN 13:27
PROVIDERS: PCP Nurse Practitioner; Visit Provider Nurse Practitioner Gerontology
DX: R33.9 Retention of urine, unspecified (principal)
CPT/HCPCS: 84520; 82565

== ENCOUNTER → 2020-12-08 14:47 | Outpatient (BNVA) | payer MEDICARE, BC, SELFPAY | PROVIDERS: PCP Nurse Practitioner; Referring Provider Nurse Practitioner; Visit Provider Nurse Practitioner Gerontology | DX: N13.30 Unspecified hydronephrosis (principal); R33.8 Other retention of urine; I10 Essential (primary) hypertension | CPT/HCPCS: 99215 ==

== ENCOUNTER 2021-02-06 03:27 | Outpatient (CLI) | payer MEDICARE, BC, SELFPAY ==
[2021-02-06 11:57] LABS: Anion Gap 8.5 mmol/L (3-11); BUN 28 mg/dL (7-18); CO2 28.5 mmol/L (21.0-32.0); CREATININE 1.5 mg/dL (0.70-1.30); Calcium 9.3 mg/dL (8.5-10.1); Chloride 107 mmol/L (98-107); Glucose 95 mg/dL (74-106); Potassium 4.8 mmol/L (3.5-5.1); Sodium 144 mmol/L (136-145)
== END 2021-02-06 03:28 | disposition home or self-care (01) ==
LOC: LBO 03:27
PROVIDERS: PCP Nurse Practitioner; Visit Provider Nurse Practitioner Gerontology
DX: I10 Essential (primary) hypertension (principal); R33.9 Retention of urine, unspecified; N13.30 Unspecified hydronephrosis
CPT/HCPCS: 36415; 80048

== ENCOUNTER → 2021-02-09 14:24 | Outpatient (BNVA) | payer MEDICARE, BC, SELFPAY | PROVIDERS: PCP Nurse Practitioner; Referring Provider Nurse Practitioner; Visit Provider Nurse Practitioner Gerontology | DX: N13.30 Unspecified hydronephrosis (principal); R33.8 Other retention of urine; I10 Essential (primary) hypertension | CPT/HCPCS: 99215 ==

== ENCOUNTER → 2021-03-20 13:06 | Outpatient (BNVA) | payer MEDICARE, BC, SELFPAY | PROVIDERS: PCP Nurse Practitioner; Referring Provider Nurse Practitioner; Visit Provider Urology | DX: R33.8 Other retention of urine (principal); Z46.6 Encounter for fitting and adjustment of urinary device | CPT/HCPCS: 51702; 99213 ==

== ENCOUNTER → 2021-03-29 08:00 | Outpatient (BNVA) | payer MEDICARE, BC, SELFPAY | PROVIDERS: PCP Nurse Practitioner; Referring Provider Nurse Practitioner; Visit Provider Nurse Practitioner Gerontology | DX: R33.8 Other retention of urine (principal) | CPT/HCPCS: 99213 ==

== ENCOUNTER 2021-05-09 02:43 | Outpatient (CLI) | payer MEDICARE, BC, SELFPAY ==
[2021-05-09 13:01] LABS: ALT 36 U/L (16-63); AST 25 U/L (15-37); Albumin 3.7 g/dL (3.4-5.0); Alkaline Phosphatase 98 U/L (46-116); Anion Gap 5.6 mmol/L (3-11); BUN 29 mg/dL (7-18); Bilirubin, Total 0.5 mg/dL (0.2-1.0); CO2 30.4 mmol/L (21.0-32.0); CREATININE 1.7 mg/dL (0.70-1.30); Calcium 9.1 mg/dL (8.5-10.1); Chloride 105 mmol/L (98-107); Estimated GFR 39.38 (mL/min/1.73m2); Glucose 104 mg/dL (74-106); Potassium 4.5 mmol/L (3.5-5.1); Sodium 141 mmol/L (136-145); Total Protein 6.7 g/dL (6.4-8.2)
== END 2021-05-09 02:44 | disposition home or self-care (01) ==
PROVIDERS: PCP Nurse Practitioner; Visit Provider Nurse Practitioner Gerontology
DX: R33.9 Retention of urine, unspecified (principal); N13.30 Unspecified hydronephrosis
CPT/HCPCS: 36415; 80053

== ENCOUNTER → 2021-05-11 14:22 | Outpatient (BNVA) | payer MEDICARE, BC, SELFPAY | PROVIDERS: PCP Nurse Practitioner; Visit Provider Nurse Practitioner Gerontology | DX: R33.8 Other retention of urine (principal); N13.30 Unspecified hydronephrosis; R94.4 Abnormal results of kidney function studies | CPT/HCPCS: 99214 ==

== ENCOUNTER 2021-08-04 01:43 | Outpatient (CLI) | payer MEDICARE, SELFPAY ==
--- NOTE | 2021-08-04 08:00 | DI.US_ITS ---
Exam(s) US RENAL EXAM: US RENAL CLINICAL HISTORY: monitor hydro,urinary retention,r33.9 TECHNIQUE: Ultrasound of both kidneys performed using standard protocol. COMPARISON: US US CAROTID from 04/01/2020 FINDINGS: RIGHT KIDNEY: Measures 8.8 cm in length. There is a 1.9 x 1.7 cm slightly lower than midpole cyst in the right kidn ey. Normal cortical thickness and corticomedullary differentiation .No solid masses No intrarenal calculi nor hydronephrosis. LEFT KIDNEY: Measures 9.9 cm in length. No cysts evident. Normal cortical thickness and corticomedullary differen tiaion. No solids masses. No intrarenal calculi nor hydonephrosis. URINARY BLADDER: Prevoid volume is 234 cc Patient is unable to void (self catheterization patient without supplies) No evidence of bladder mass nor diverticuli. Prostate gland is enlarged, measuring 5.6 x 5.7 by 5.9 cm Ureterovesical jets: Left visualized. Right not visualized IMPRESSION: 1. There is no hydronephrosis on either side in this patient self caths. 2. There is a 1.9 cm benign cyst in the right kidney. No other focal renal findings. No calculi. Enlarged prostate gland DATA REPOSITORY:
== END 2021-08-04 02:03 ==
PROVIDERS: PCP Nurse Practitioner; Visit Provider Nurse Practitioner Gerontology
DX: R33.9 Retention of urine, unspecified (principal); N28.1 Cyst of kidney, acquired; N40.0 Benign prostatic hyperplasia without lower urinary tract symptoms
CPT/HCPCS: 76770

== ENCOUNTER 2021-08-04 04:27 | Outpatient (CLI) | payer MEDICARE, SELFPAY ==
[2021-08-04 16:42] LABS: BUN 29 mg/dL (7-18); CREATININE 1.6 mg/dL (0.70-1.30); Calculated LDL 52 mg/dL (<100); Cholesterol 115 mg/dL (<200); Estimated GFR 42.24 (mL/min/1.73m2); HDL Cholesterol 38 mg/dL (40-60); Triglyceride 128 mg/dL (<150)
== END 2021-08-04 04:28 | disposition home or self-care (01) ==
LOC: LBO 04:27
PROVIDERS: PCP Nurse Practitioner; Visit Provider Nurse Practitioner Gerontology
DX: R31.9 Hematuria, unspecified (principal); R33.9 Retention of urine, unspecified; E78.5 Hyperlipidemia, unspecified
CPT/HCPCS: 36415; 80061; 84520; 82565

== ENCOUNTER → 2021-08-10 15:21 | Outpatient (BNVA) | payer MEDICARE, SELFPAY | PROVIDERS: PCP Nurse Practitioner; Referring Provider Nurse Practitioner; Visit Provider Nurse Practitioner Gerontology | DX: R33.9 Retention of urine, unspecified (principal); N18.30 Chronic kidney disease, stage 3 unspecified; N13.30 Unspecified hydronephrosis | CPT/HCPCS: 99214 ==

== ENCOUNTER → 2021-10-09 11:28 | Outpatient (BNVA) | payer MEDICARE, SELFPAY | PROVIDERS: PCP Nurse Practitioner; Referring Provider Nurse Practitioner; Visit Provider Internal Medicine Cardiovascular Disease | DX: I25.2 Old myocardial infarction (principal); I10 Essential (primary) hypertension; E78.5 Hyperlipidemia, unspecified | CPT/HCPCS: 99214; 99213 ==

== ENCOUNTER → 2021-11-20 09:52 | Outpatient (BNVA) | payer MEDICARE, SELFPAY | PROVIDERS: PCP Nurse Practitioner; Referring Provider Nurse Practitioner; Visit Provider Nurse Practitioner Gerontology | DX: R33.8 Other retention of urine (principal); I12.9 Hypertensive chronic kidney disease with stage 1 through stage 4 chronic kidney disease, or unspecified chronic kidney disease; N18.30 Chronic kidney disease, stage 3 unspecified; N13.30 Unspecified hydronephrosis | CPT/HCPCS: 99214 ==

== ENCOUNTER 2022-02-06 02:01 | Outpatient (CLI) | payer MEDICARE, SELFPAY ==
[2022-02-06 10:46] LABS: BUN 29 mg/dL (7-18); CREATININE 1.7 mg/dL (0.70-1.30); Estimated GFR 39.28 (mL/min/1.73m2)
== END 2022-02-06 02:02 | disposition home or self-care (01) ==
LOC: LBO 02:01
PROVIDERS: PCP Nurse Practitioner; Visit Provider Nurse Practitioner Gerontology
DX: N18.30 Chronic kidney disease, stage 3 unspecified (principal); N13.30 Unspecified hydronephrosis; R33.9 Retention of urine, unspecified
CPT/HCPCS: 36415; 84520; 82565

== ENCOUNTER → 2022-02-13 15:16 | Outpatient (BNVA) | payer MEDICARE, SELFPAY | PROVIDERS: PCP Nurse Practitioner; Visit Provider Nurse Practitioner Gerontology | DX: R33.8 Other retention of urine (principal); N18.30 Chronic kidney disease, stage 3 unspecified; N13.30 Unspecified hydronephrosis; R31.9 Hematuria, unspecified; N40.0 Benign prostatic hyperplasia without lower urinary tract symptoms | CPT/HCPCS: 36415; 99215 ==

== ENCOUNTER 2022-02-13 16:49 | Outpatient (REF) | payer MEDICARE, SELFPAY ==
[2022-02-14 19:01] LABS: PSA, Screening 6.1 ng/mL (<=6.5)
== END 2022-02-13 16:50 | disposition home or self-care (01) ==
LOC: LBN 16:49
PROVIDERS: PCP Nurse Practitioner; Visit Provider Nurse Practitioner Gerontology
DX: N40.0 Benign prostatic hyperplasia without lower urinary tract symptoms (principal); Z12.5 Encounter for screening for malignant neoplasm of prostate
CPT/HCPCS: 84153

== ENCOUNTER 2022-02-27 03:25 | Outpatient (CLI) | payer MEDICARE, SELFPAY ==
[2022-02-27 09:52] LABS: Anion Gap 5.3 mmol/L (3-11); BUN 19 mg/dL (7-18); CO2 28.7 mmol/L (21.0-32.0); CREATININE 1.6 mg/dL (0.70-1.30); Calcium 8.8 mg/dL (8.5-10.1); Chloride 108 mmol/L (98-107); Estimated GFR 42.12 (mL/min/1.73m2); Glucose 106 mg/dL (74-106); Potassium 4.4 mmol/L (3.5-5.1); Sodium 142 mmol/L (136-145)
[2022-02-27 09:58] LABS: BUN 18 mg/dL (7-18); Uric Acid 5.6 mg/dL (3.5-7.2)
== END 2022-02-27 03:26 | disposition home or self-care (01) ==
LOC: LBO 03:25
PROVIDERS: Nurse Practitioner Gerontology; PCP Nurse Practitioner; Visit Provider Nurse Practitioner
DX: N18.30 Chronic kidney disease, stage 3 unspecified (principal); R33.9 Retention of urine, unspecified; M10.9 Gout, unspecified
CPT/HCPCS: 36415; 80048; 84520; 84550

== ENCOUNTER 2022-08-07 02:56 | Outpatient (CLI) | payer MEDICARE, SELFPAY ==
[2022-08-07 12:11] LABS: CREATININE 1.6 mg/dL (0.70-1.30)
== END 2022-08-07 02:57 | disposition home or self-care (01) ==
LOC: LBO 02:56
PROVIDERS: Visit Provider Nurse Practitioner Gerontology
DX: N18.30 Chronic kidney disease, stage 3 unspecified (principal); R33.9 Retention of urine, unspecified
CPT/HCPCS: 36415; 82565

== ENCOUNTER → 2022-08-14 15:21 | Outpatient (BNVA) | payer MEDICARE, SELFPAY | PROVIDERS: Visit Provider Nurse Practitioner Gerontology | DX: N40.1 Benign prostatic hyperplasia with lower urinary tract symptoms (principal); R33.9 Retention of urine, unspecified; R31.9 Hematuria, unspecified; N18.30 Chronic kidney disease, stage 3 unspecified | CPT/HCPCS: 99214 ==

== ENCOUNTER 2022-10-08 08:25 | Outpatient (CLI) | payer MEDICARE, SELFPAY ==
--- NOTE | 2022-10-08 08:15 | RT.EKG_ITS ---
APPROVED REPORT Exam: Resting ECG Reason for Exam: PR Patient Location: O HR:53 bpm ECG Measurements Heart Rate 53 AXIS MT 157 P 66 QRSd 91 QRS 37 QT 406 T 63 QTc 382 Conclusion Sinus rhythm...normal P axis, V-rate 50- 99 Normal Electrocardiogram
== END 2022-10-08 08:26 | disposition home or self-care (01) ==
LOC: DI.CARD 08:26
PROVIDERS: PCP Family Medicine; Visit Provider Internal Medicine Cardiovascular Disease
DX: I25.2 Old myocardial infarction (principal)
CPT/HCPCS: 93010

== ENCOUNTER → 2022-10-08 10:23 | Outpatient (BNVA) | payer MEDICARE, SELFPAY | PROVIDERS: PCP Family Medicine; Visit Provider Internal Medicine Cardiovascular Disease | DX: I25.10 Atherosclerotic heart disease of native coronary artery without angina pectoris (principal); I25.2 Old myocardial infarction; I65.29 Occlusion and stenosis of unspecified carotid artery; E78.5 Hyperlipidemia, unspecified; Z95.5 Presence of coronary angioplasty implant and graft | CPT/HCPCS: 93005; 99214 ==

== ENCOUNTER 2022-10-18 01:04 | Outpatient (CLI) | payer MEDICARE, SELFPAY ==
--- NOTE | 2022-10-18 07:15 | DI.US_ITS ---
Exam(s) US CAROTID EXAM: US CAROTID CLINICAL HISTORY: Moderate right carotid stenosis,I65.29. TECHNIQUE: Ultrasound carotids performed using grayscale, color-flow, and spectral Doppler imaging. COMPARISON: US US CAROTID from 04/01/2020 FINDINGS: RIGHT CAROTID ARTERY: Plaque: Minimal, mid CCA. Velocity elevation: None. LEFT CAROTID ARTERY: Plaque: Minimal. Velocity elevation: None. VERTEBRAL ARTERIES: Antegrade flow. Measurements: R Bulb: 112.9cm/s PS / 11.2cm/s ED R CCA: 107cm/s PS / 17.6cm/s ED R ECA: 141.2cm/s PS / 4.7cm/s ED R ICA Prox: 72cm/s PS / 17.9cm/s ED R ICA Mid: 71.7cm/s PS / 21.1cm/s ED R ICA Distal: 56.2cm/s PS /16.7cm/s ED R Vert: 37cm/s PS / 7.3cm/s ED R SVR: 1.1 R DVR: 0.6 L Bulb: 52.8cm/s PS / 12.7cm/s ED L CCA: 94.5cm/s PS / 20.3cm/s ED L ECA: 91.4cm/s PS / 7.2cm/s ED L ICA Prox: 57cm/s PS / 17.4cm/s ED L ICA Mid: 76.4cm/s PS / 21.5cm/s ED L ICA Distal: 74.8cm/s PS / 24.8cm/s ED L Vert: 52.3cm/s PS / 13.2cm/s ED L SVR: 0.8 L DVR: 1.1 IMPRESSION: Minimal plaque right CCA. No visible internal carotid artery plaque.. No visual evidence of stenosi s. No significant velocity elevations.. Criteria for Carotid Stenosis: Normal: ICA PSV <125 cm/s no plaque or intimal thickening is visible. <50% stenosis: ICA PSV <125 cm/s and plaque or intimal thickening is visible. 50-69% stenosis: ICA PSV is 125-250 cm/s and plaque is visible. >70% stenosis to near occlusion: ICA PSV >250 cm/s with visible plaque and luminal narrowing. DATA REPOSITORY:
== END 2022-10-18 01:24 ==
LOC: DI 01:04
PROVIDERS: PCP Family Medicine; Visit Provider Internal Medicine Cardiovascular Disease
DX: I65.21 Occlusion and stenosis of right carotid artery (principal)
CPT/HCPCS: 93880

== ENCOUNTER 2022-11-08 03:31 | Outpatient (CLI) | payer MEDICARE, SELFPAY ==
[2022-11-08 09:38] LABS: HCT 45.9 % (40.0-50.0); HGB 15.3 g/dL (13.5-17.5); MCH 29.4 pg (27.0-33.0); MCHC 33.3 % (32.0-36.0); MCV 88 fL (80-95); MPV 9.3 fL (8.0-11.0); Platelet Count 189 10^3/uL (130-400); RDW-SD 42.2 fL; WBC 6.62 10^3/uL (4.4-10.8)
[2022-11-08 10:20] LABS: ALT 40 U/L (16-63); AST 25 U/L (15-37); Albumin 3.7 g/dL (3.4-5.0); Alkaline Phosphatase 101 U/L (46-116); Anion Gap 5.9 mmol/L (3-11); BUN 26 mg/dL (7-18); Bilirubin, Total 0.4 mg/dL (0.2-1.0); CO2 28.1 mmol/L (21.0-32.0); CREATININE 1.7 mg/dL (0.70-1.30); Calcium 9.2 mg/dL (8.5-10.1); Calculated LDL 59 mg/dL (<100); Chloride 106 mmol/L (98-107); Cholesterol 122 mg/dL (<200); Estimated GFR 41.01 (mL/min/1.73m2); Glucose 105 mg/dL (74-106); HDL Cholesterol 40 mg/dL (40-60); Potassium 4.8 mmol/L (3.5-5.1); Sodium 140 mmol/L (136-145); Total Protein 7.2 g/dL (6.4-8.2); Triglyceride 119 mg/dL (<150)
[2022-11-08 10:32] LABS: Uric Acid 5.8 mg/dL (3.5-7.2)
== END 2022-11-08 03:32 | disposition home or self-care (01) ==
LOC: LBO 03:31
PROVIDERS: PCP Family Medicine; Visit Provider Family Medicine
DX: I25.10 Atherosclerotic heart disease of native coronary artery without angina pectoris (principal)
CPT/HCPCS: 36415; 80053; 80061; 85027; 84550

== ENCOUNTER 2023-02-05 02:22 | Outpatient (CLI) | payer MEDICARE, SELFPAY ==
[2023-02-05 09:41] LABS: BUN 25 mg/dL (7-18); CREATININE 1.8 mg/dL (0.70-1.30); Estimated GFR 38.05 (mL/min/1.73m2)
[2023-02-05 20:20] LABS: PSA, Diagnostic 5.5 ng/mL (<=6.5)
== END 2023-02-05 02:23 | disposition home or self-care (01) ==
LOC: LBO 02:22
PROVIDERS: PCP Family Medicine; Visit Provider Nurse Practitioner Gerontology
DX: R33.9 Retention of urine, unspecified (principal); N40.0 Benign prostatic hyperplasia without lower urinary tract symptoms
CPT/HCPCS: 36415; 84520; 82565; 84153

== ENCOUNTER → 2023-02-12 14:52 | Outpatient (BNVA) | payer MEDICARE, SELFPAY | PROVIDERS: PCP Family Medicine; Visit Provider Nurse Practitioner Gerontology | DX: N40.1 Benign prostatic hyperplasia with lower urinary tract symptoms (principal); I12.9 Hypertensive chronic kidney disease with stage 1 through stage 4 chronic kidney disease, or unspecified chronic kidney disease; R31.9 Hematuria, unspecified; N13.30 Unspecified hydronephrosis; N18.30 Chronic kidney disease, stage 3 unspecified | CPT/HCPCS: 99214 ==

== ENCOUNTER → 2023-04-01 07:45 | Outpatient (BNVA) | payer MEDICARE, SELFPAY | PROVIDERS: PCP Family Medicine; Referring Provider Family Medicine; Visit Provider Nurse Practitioner Gerontology | DX: Z46.6 Encounter for fitting and adjustment of urinary device (principal); R33.9 Retention of urine, unspecified; N13.30 Unspecified hydronephrosis | CPT/HCPCS: 51702 ==

== ENCOUNTER → 2023-04-15 07:49 | Outpatient (BNVA) | payer MEDICARE, SELFPAY | PROVIDERS: PCP Family Medicine; Referring Provider Family Medicine; Visit Provider Nurse Practitioner Gerontology | DX: Z46.6 Encounter for fitting and adjustment of urinary device (principal); N40.1 Benign prostatic hyperplasia with lower urinary tract symptoms; R33.9 Retention of urine, unspecified | CPT/HCPCS: 99211 ==

== ENCOUNTER 2023-04-15 16:06 | Outpatient (REF) | payer MEDICARE, SELFPAY ==
[2023-04-15 19:50] LABS: BUN 23 mg/dL (7-18); CREATININE 1.6 mg/dL (0.70-1.30); Calcium 9.3 mg/dL (8.5-10.1); Chloride 103 mmol/L (98-107); Estimated GFR 43.83 (mL/min/1.73m2); Glucose 114 mg/dL (74-106); Potassium 4.3 mmol/L (3.5-5.1); Sodium 138 mmol/L (136-145)
== END 2023-04-15 16:07 | disposition home or self-care (01) ==
LOC: NCHCN 16:06
PROVIDERS: PCP Family Medicine; Visit Provider Family Medicine
DX: I10 Essential (primary) hypertension (principal)
CPT/HCPCS: 80048

== ENCOUNTER 2023-08-13 03:50 | Outpatient (CLI) | payer MEDICARE, SELFPAY ==
[2023-08-13 11:31] LABS: BUN 32 mg/dL (7-18); CREATININE 1.8 mg/dL (0.70-1.30); Estimated GFR 38.05 (mL/min/1.73m2)
== END 2023-08-13 03:51 | disposition home or self-care (01) ==
LOC: LBO 03:50
PROVIDERS: PCP Family Medicine; Visit Provider Nurse Practitioner Gerontology
DX: N18.30 Chronic kidney disease, stage 3 unspecified (principal); R33.9 Retention of urine, unspecified
CPT/HCPCS: 36415; 84520; 82565

== ENCOUNTER → 2023-08-20 14:23 | Outpatient (BNVA) | payer MEDICARE, SELFPAY | PROVIDERS: PCP Family Medicine; Visit Provider Nurse Practitioner Gerontology | DX: R33.8 Other retention of urine (principal); N18.30 Chronic kidney disease, stage 3 unspecified; N40.0 Benign prostatic hyperplasia without lower urinary tract symptoms; N13.30 Unspecified hydronephrosis | CPT/HCPCS: 99213 ==

== ENCOUNTER → 2023-10-07 10:33 | Outpatient (BNVA) | payer MEDICARE, SELFPAY | PROVIDERS: PCP Family Medicine; Visit Provider Internal Medicine Cardiovascular Disease | DX: I25.10 Atherosclerotic heart disease of native coronary artery without angina pectoris (principal); I65.29 Occlusion and stenosis of unspecified carotid artery; I25.2 Old myocardial infarction; I10 Essential (primary) hypertension; E78.5 Hyperlipidemia, unspecified | CPT/HCPCS: 99213 ==

== ENCOUNTER → 2023-10-30 12:20 | Outpatient (BNVA) | payer MEDICARE, SELFPAY | PROVIDERS: PCP Family Medicine; Visit Provider Nurse Practitioner Gerontology | DX: R33.8 Other retention of urine (principal); N40.0 Benign prostatic hyperplasia without lower urinary tract symptoms; N18.30 Chronic kidney disease, stage 3 unspecified; N13.30 Unspecified hydronephrosis | CPT/HCPCS: 51702; 99213 ==

== ENCOUNTER → 2023-11-19 09:18 | Outpatient (BNVA) | payer MEDICARE, SELFPAY | PROVIDERS: PCP Family Medicine; Visit Provider Nurse Practitioner Gerontology | DX: R33.8 Other retention of urine (principal) | CPT/HCPCS: 99213 ==

== ENCOUNTER 2024-01-28 04:38 | Outpatient (CLI) | payer MEDICARE, SELFPAY ==
[2024-01-28 11:45] LABS: BUN 27 mg/dL (7-18); CREATININE 1.8 mg/dL (0.70-1.30); Estimated GFR 37.82 (mL/min/1.73m2)
== END 2024-01-28 04:39 | disposition home or self-care (01) ==
LOC: LBO 04:38
PROVIDERS: PCP Family Medicine; Visit Provider Nurse Practitioner Gerontology
DX: N18.30 Chronic kidney disease, stage 3 unspecified (principal); R33.9 Retention of urine, unspecified
CPT/HCPCS: 36415; 84520; 82565

== ENCOUNTER → 2024-02-04 14:43 | Outpatient (BNVA) | payer MEDICARE, SELFPAY | PROVIDERS: PCP Family Medicine; Visit Provider Nurse Practitioner Gerontology | DX: R33.8 Other retention of urine (principal); N40.0 Benign prostatic hyperplasia without lower urinary tract symptoms; N18.30 Chronic kidney disease, stage 3 unspecified; N13.30 Unspecified hydronephrosis | CPT/HCPCS: 99213 ==

== ENCOUNTER → 2024-03-24 09:52 | Outpatient (BNVA) | payer MEDICARE, SELFPAY | PROVIDERS: PCP Family Medicine; Visit Provider Nurse Practitioner Gerontology | DX: R33.8 Other retention of urine (principal) | CPT/HCPCS: 51702 ==

== ENCOUNTER → 2024-04-06 07:50 | Outpatient (BNVA) | payer MEDICARE, SELFPAY | PROVIDERS: PCP Family Medicine; Referring Provider Family Medicine; Visit Provider Nurse Practitioner Gerontology | DX: R33.8 Other retention of urine (principal) | CPT/HCPCS: 99212 ==

== ENCOUNTER 2024-06-23 16:35 | Outpatient (REF) | payer MEDICARE, SELFPAY ==
[2024-06-23 22:49] LABS: ALT 26 U/L (16-63); AST 18 U/L (15-37); Albumin 3.5 g/dL (3.4-5.0); Alkaline Phosphatase 110 U/L (46-116); Anion Gap 6.4 mmol/L (3-11); BUN 23 mg/dL (7-18); Bilirubin, Total 0.37 mg/dL (0.2-1.0); CO2 28.6 mmol/L (21.0-32.0); CREATININE 1.7 mg/dL (0.70-1.30); Calcium 9.3 mg/dL (8.5-10.1); Chloride 105 mmol/L (98-107); Glucose 95 mg/dL (74-106); LDL CHOLESTEROL 122 mg/dL (<100); Potassium 4.7 mmol/L (3.5-5.1); Sodium 140 mmol/L (136-145); Total Protein 6.8 g/dL (6.4-8.2)
[2024-06-23 22:59] LABS: Uric Acid 5.3 mg/dL (3.5-7.2)
[2024-06-24 19:04] LABS: PSA, Diagnostic 6.4 ng/mL (<=6.5)
== END 2024-06-23 16:36 | disposition home or self-care (01) ==
LOC: NCHCN 16:35
PROVIDERS: PCP Family Medicine; Visit Provider Family Medicine
DX: I25.10 Atherosclerotic heart disease of native coronary artery without angina pectoris (principal); N40.1 Benign prostatic hyperplasia with lower urinary tract symptoms
CPT/HCPCS: 80053; 83721; 84153; 84550

== ENCOUNTER 2024-06-24 10:29 | Outpatient (CLI) | payer MEDICARE, SELFPAY ==
--- NOTE | 2024-06-24 | DI.RAD_ITS ---
Exam(s) XR HIP RT COMPLETE AP PELVIS EXAM: XR HIP RT COMPLETE AP PELVIS CLINICAL HISTORY: M25.551 Pain in Rt hip. TECHNIQUE: 2D digital imaging was performed. Two views COMPARISON: CT CT ABDOMEN PELVIS W from 09/22/2020 FINDINGS: BONES: No acute fracture is present. No bony destructive lesion is seen. JOINTS: No dislocation present. Severe narrowing of the superior hip joint spaces bilaterally. Pro minent bilateral acetabular spurring. Spurring greatest at the superior acetabula. SOFT TISSUE: Vascular calcifications. Surgical clips in the scrotal region. IMPRESSION: Severe degenerative change of both hips. DATA REPOSITORY: RADIATION DOSE DELIVERED:
== END 2024-06-24 10:49 ==
LOC: DI 10:29
PROVIDERS: PCP Family Medicine; Visit Provider Family Medicine
DX: M16.0 Bilateral primary osteoarthritis of hip (principal)
CPT/HCPCS: 73502

== ENCOUNTER → 2024-07-21 09:58 | Outpatient (BNVA) | payer MEDICARE, SELFPAY | PROVIDERS: PCP Family Medicine; Referring Provider Family Medicine | DX: M16.11 Unilateral primary osteoarthritis, right hip (principal); M16.12 Unilateral primary osteoarthritis, left hip | CPT/HCPCS: 99213 ==

== ENCOUNTER → 2024-08-11 14:50 | Outpatient (BNVA) | payer MEDICARE, SELFPAY | PROVIDERS: PCP Family Medicine; Visit Provider Nurse Practitioner Gerontology | DX: R33.8 Other retention of urine (principal); N40.0 Benign prostatic hyperplasia without lower urinary tract symptoms; N18.30 Chronic kidney disease, stage 3 unspecified; N13.30 Unspecified hydronephrosis | CPT/HCPCS: 99213 ==

== ENCOUNTER → 2024-10-05 08:47 | Outpatient (BNVA) | payer MEDICARE, SELFPAY | PROVIDERS: PCP Family Medicine; Visit Provider Registered Nurse | DX: I25.10 Atherosclerotic heart disease of native coronary artery without angina pectoris (principal); I25.2 Old myocardial infarction; I10 Essential (primary) hypertension; I65.29 Occlusion and stenosis of unspecified carotid artery; E78.5 Hyperlipidemia, unspecified | CPT/HCPCS: 99214 ==

== ENCOUNTER 2024-11-18 09:34 | Emergency (ER) | payer MEDICARE, SELFPAY ==
[2024-11-18 09:35] VITALS: BP 169/66; PULSE 65; RESP 15; TEMP 37; O2SAT 98
--- NOTE | 2024-11-18 09:45 | DI.US_ITS ---
Exam(s) US LOWER EXTREMITY VENOUS RT EXAM: US LOWER EXTREMITY VENOUS RT CLINICAL HISTORY: Leg pain, recent travel. TECHNIQUE: Lower extremity venous ultrasound performed using grayscale, color-flow, and spectral Do ppler analysis. COMPARISON: No exams were available for comparison FINDINGS: The common femoral, femoral and popliteal veins demonstrate normal compressibility, augmentation, and color Doppler. The posterior tibial and peroneal veins are patent. No saphenous vein thrombosis or other superficial venous thrombosis is seen. No hematoma or De Santiago's cyst is seen. IMPRESSION: Negative lower extremity ultrasound. No evidence of DVT. DATA REPOSITORY:
--- NOTE | 2024-11-18 09:45 | DI.RAD_ITS ---
Exam(s) XR TIB/FIB RT EXAM: XR TIB/FIB RT CLINICAL HISTORY: Leg pain. TECHNIQUE: 2D digital imaging was performed. Two views. COMPARISON: No exams were available for comparison FINDINGS: BONES: No acute fracture is present. No bony destructive lesion is seen. Visualized portion of knee a nd ankle joints are unremarkable. SOFT TISSUE: Normal vascular calcifications. IMPRESSION: Unremarkable radiographs of the right tibia and fibula. DATA REPOSITORY: RADIATION DOSE DELIVERED:
--- NOTE | 2024-11-18 09:51 | ED.GENADUL_ITS ---
Discharge Plan Disposition Patient Disposition: Home Condition: Stable Discharge Details Clinical Impression: Pain of right calf Primary Care Provider: Sameer Stevenson ED Provider: Huma Yi Home Meds and New Rx's Prescriptions: Continued allopurinol 100 mg tablet 50 mg PO DAILY Qty: 60 0RF Rx Instructions: Take 1/2 pill daily. colchicine 0.6 mg tablet 0.6 mg PO BID PRN Rx Instructions: 2 tablets now, follow with 1 tablet in 1 hour. Then, 1 tablet twice daily until symptoms resolve. After symptoms resolve 1 tablet every other day cholecalciferol (vitamin D3) 25 mcg (1,000 unit) capsule 2,000 unit PO DAILY amlodipine 5 mg tablet 5 mg PO DAILY Qty: 90 4RF aspirin 81 MG tablet,chewable 81 mg PO DAILY nitroglycerin 0.4 mg tablet, sublingual 0.4 mg SL Q5M PRN (Reason: chest pain) Qty: 30 2RF Rx Instructions: do not exceed 3 doses per episode losartan [Cozaar] 100 mg tablet 100 mg PO DAILY Qty: 90 3RF metoprolol succinate 25 mg tablet extended release 24 hr See Rx Instructions .ROUTE .COMPLEX Qty: 90 3RF Dose Instruction: TAKE ONE TABLET BY MOUTH AT BEDTIME Rx Instructions: TAKE ONE TABLET BY MOUTH AT BEDTIME No Action Probiotic 20 billion cell capsule 20,000 mmu cells PO .QOD Discharge Instructions Instructions: Opioids for Short-Term Treatment of Pain ED, Leg Pain (ED) Additional Instructions: At this time no evidence of a blood clot in your veins, no evidence of any bony abnormality in your tibia or fibula. Please use the crutches as needed for weightbearing. Apply Dre wrap daily for compression. You may alternate ice and heat. Keep raised above the level of your heart when sitting or lying down. You may also try some light stretching exercises. A referral for physical therapy was placed please call them to schedule an appointment. Follow up with primary care provider in 3-5 days if this continues please discuss further evaluation with a CT. Return to ED sooner if any worsening or concerns. Thank you for allowing us to care for you today. Stand Alone Forms: Physical Therapy Referral Referrals: Sameer Stevenson MD [Primary Care Provider] - 5 days Discharge Data Discharge Date/Time-TO BE ENTERED AT DEPARTURE: 11/18/24 11:55 HPI General Mode of arrival: ambulatory . Date/Time Provider Initiated Documentation: 11/18/24 09:40 . Limitations to Documentation: no limitations . Information obtained by: patient, RN notes reviewed and old records reviewed . HPI Narrative: 78-year-old male presents to the ER with right calf pain for the last week. Recently traveling by car. Denies noting any swelling or erythema. Does have a history of gout, subarachnoid hemorrhage, left inguinal hernia, CAD, osteoarthritis, carotid stenosis, hypertension high cholesterol. Was recently given atorvastatin which has caused leg cramps in the past. Patient reports that the pain is only with weightbearing and ambulation. No significant pain with knee extension. At rest he has decreased pain. Denies any chest pain shortness of breath or any other associated symptoms. Related Data Home Medications ?Medication ?Instructions ?Recorded ?Confirmed aspirin 81 mg chewable tablet 81 mg PO DAILY 07/11/17 11/18/24 lactobacillus comb no.10 20 20,000 mmu cells PO .QOD 03/22/20 11/18/24 billion cell capsule (Probiotic) cholecalciferol (vitamin D3) 25 2,000 unit PO DAILY 07/26/20 11/18/24 mcg (1,000 unit) capsule nitroglycerin 0.4 mg sublingual 0.4 mg sublingual Q5M PRN chest 09/16/20 11/18/24 tablet pain #30 tabs amlodipine 5 mg tablet 5 mg PO DAILY #90 tabs 08/17/21 11/18/24 losartan 100 mg tablet (Cozaar) 100 mg PO DAILY #90 tab-caps 11/20/21 11/18/24 allopurinol 100 mg tablet 50 mg (1/2 x 100 mg) PO DAILY #60 02/15/22 11/18/24 tabs colchicine 0.6 mg tablet 0.6 mg PO BID PRN 10/07/23 11/18/24 metoprolol succinate 25 mg See Rx Instructions .Route 05/14/24 11/18/24 tablet,extended release 24 hr .COMPLEX #90 tabs Previous Rx's ?Medication ?Instructions ?Recorded nitroglycerin 0.4 mg sublingual 0.4 mg sublingual Q5M PRN chest 09/16/20 tablet pain #30 tabs amlodipine 5 mg tablet 5 mg PO DAILY #90 tabs 08/17/21 losartan 100 mg tablet (Cozaar) 100 mg PO DAILY #90 tab-caps 11/20/21 allopurinol 100 mg tablet 50 mg (1/2 x 100 mg) PO DAILY #60 02/15/22 tabs metoprolol succinate 25 mg See Rx Instructions .Route 05/14/24 tablet,extended release 24 hr .COMPLEX #90 tabs Allergies Allergy/AdvReac Type Severity Reaction Status Date / Time atorvastatin AdvReac Intermediate Other (See Verified 11/18/24 09:42 Comment) rosuvastatin AdvReac Intermediate Other (See Verified 11/18/24 09:42 Comment) lisinopril AdvReac Unknown COUGH Verified 11/18/24 09:42 General Stated Complaint: Vascular MATTHEW: 3 Review of Systems All systems reviewed & are unremarkable except as noted in HPI and below Musculoskeletal Musculoskeletal: Reports as per HPI Exam Extrem Right lower extremity: normal capillary refill and lower leg Details: tenderness Location: other (Lateral mid calf); no abrasions, no lacerations and no unusual warmth Course Vital Signs Vital signs: Vital Signs Temperature 37.0 C 11/18/24 09:35 Pulse 65 11/18/24 09:35 Respiratory Rate 15 11/18/24 09:35 Blood Pressure 169/66 H 11/18/24 09:35 Pulse Oximetry 98 11/18/24 09:35 Temperature 37.0 C 11/18/24 09:35 Temperature Source Oral 11/18/24 09:35 Pulse 65 11/18/24 09:35 Respiratory Rate 15 11/18/24 09:35 Blood Pressure 169/66 H 11/18/24 09:35 Blood Pressure Position Sitting 11/18/24 09:35 Pulse Oximetry 98 11/18/24 09:35 Oxygen Delivery Method Room Air 11/18/24 09:35 Oxygen Flow Rate 0 11/18/24 09:35 Pain Level 1 11/18/24 09:35 Comment Pain jumps to an 8 when standing on it 11/18/24 09:35 Medical Decision Making 78-year-old male here with right leg pain differential diagnose includes but not limited to DVT, claudication, occult fracture, sprain Ultrasound right lower extremity ordered to rule out DVT, also x-ray of tib-fib ordered to rule out occult fracture or osteoarthritis. Negative ultrasound for DVT negative tib-fib x-ray. After reevaluation and further discussion while patient is sitting there and his feet appear cyanotic, cool to the touch cap refill 4 seconds. After extensive discussion regarding discharge versus further evaluation they are in agreement with further evaluation with CT with IV contrast to eval vascular status. I did also discuss crutches, pain control and physical therapy if it did he did if it is determined that is not vascular. Labs ordered including CBC CMP PT PTT, CTA right lower extremity. Asked to return to the room again for discussion with patient and his . They are now questioning whether they should just be discharged and follow-up with her primary care which I think is reasonable at this time. I will give Dre wrap crutches physical therapy referral and instructions to follow-up with PCP or to return if any worsening. At rest with the patient's feet up on the bed his feet are pink warm and dry. Cap refill less than [address]. Patient given crutches, Dre wrap referral for physical therapy. Discussed tricked return instructions. Verbalized understanding. Discussed RICE procedures. This text was generated using Vizibilityation system, please disregard any oddities of phrase or misspellings. Medical Records Medical records reviewed: Yes I reviewed the patient's medical records. Quality:SDOH Health Related Social Needs: No Data to Display PFSH All Active Problems (Updated 11/18/24 @ 11:09 by Huma Yi, GEMA) Pain of right calf (Acute) Osteoarthritis, hip, bilateral (Acute) Coronary artery disease (Chronic) Regurgitation and rechewing of food (Acute) CKD (chronic kidney disease) stage 3, GFR 30-59 ml/min (Acute) Hydronephrosis (Acute) Urinary retention (Acute) Enlarged prostate (Acute) History of heart attack (Acute) 2019 Ejection fraction was preserved. He had an LAD stent and has nonobstructive disease in his left circumflex that was not addressed but was IFR negative. Followed by. Dr. hays/ Ren Carotid stenosis (Acute) 2019- 50%-69% ICA stenosis, mod soft plaques r>L Benign hypertension (Acute 06/24/13) Hyperlipidemia (Acute) Ptosis of left eyelid (Acute 05/30/17) Medical History Smoker Quit 1974 Syncope and collapse (10/25/08) Gout (06/10/14) Left inguinal hernia (07/09/16) not problematic to pt at this time Subarachnoid hemorrhage (04/15/12) Surgical History Vasectomy (~1974) Tonsillectomy and adenoidectomy (~1951) TOE REPAIR (~1960) Family History Mother , Age 94 OLD AGE No problems noted. Father , AGE 97 OLD AGE Essential hypertension Hyperlipidemia Sister No problems noted. Brother Essential hypertension Hypercholesterolemia Myocardial infarction Smoker Brother No problems noted. Brother No problems noted. Son No problems noted. Son No problems noted. Brother No problems noted. Maternal Grandfather No problems noted. Paternal Grandfather , age 91 No problems noted. Maternal Grandmother No problems noted. Paternal Grandmother , age 80 No problems noted. Social History Smoking/Tobacco Use Status: Former Tobacco Use tobacco type: cigarettes and pipe Quit Date: 07/22/73 Tobacco: How many years used: 10 Second Hand Exposure: Yes Smoking risk assessment performed?: Yes Alcohol Intake: current Alcohol Intake frequency: a few times a week Alcohol type: beer and wine Drug use: Never Substance use type: does not use Caregiver/Support person: No Household members: spouse Housing: house Communication Needs: None Do you need help understanding health information?: Never Pets and animals: Yes Pets and animals: cat(s) Sexually active: Yes Do you think of yourself as: straight/heterosexual Current gender identity: male What is your relationship status?: How often do you talk on the phone with friends or family?: three or more times per week How often do you get together with friends or relatives?: three or more times per week How often do you attend advent or restoration services?: 1-3 times per year Do you belong to any clubs or organized social groups?: yes Panel score (0-1 are the most socially isolated patients): 3 What type of physical activity do you participate in: walking Duration: 30-45 minutes/day Frequency: 3-4 times per week Carol/Adventism: No preference Special carol needs: No Seatbelt use: always Helmet use: Yes Helmet use: always Drive intox 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
[2024-11-18 10:34] VITALS: BP 139/67; PULSE 59; RESP 16; O2SAT 98
[2024-11-18] MEDS: MORPHine IR 15 MG TAB, 4 TABS/BTL PO (11:37)
[2024-11-18 11:40] VITALS: BP 158/64; PULSE 50; RESP 16; O2SAT 97
== END 2024-11-18 11:55 | disposition home or self-care (01) ==
PROVIDERS: Emergency Provider Registered Nurse Emergency; PCP Family Medicine
DX: M79.661 Pain in right lower leg (principal); I25.10 Atherosclerotic heart disease of native coronary artery without angina pectoris; I25.2 Old myocardial infarction; I12.9 Hypertensive chronic kidney disease with stage 1 through stage 4 chronic kidney disease, or unspecified chronic kidney disease; N18.30 Chronic kidney disease, stage 3 unspecified; E78.5 Hyperlipidemia, unspecified; Z95.5 Presence of coronary angioplasty implant and graft; Z79.82 Long term (current) use of aspirin; Z87.891 Personal history of nicotine dependence
CPT/HCPCS: 80053; 99284; 73590; 83735; 85025; 85610; 85730; 93971

== ENCOUNTER → 2024-11-23 09:28 | Outpatient (BNVA) | payer MEDICARE, SELFPAY | PROVIDERS: PCP Family Medicine; Referring Provider Family Medicine; Visit Provider Registered Nurse | DX: I25.10 Atherosclerotic heart disease of native coronary artery without angina pectoris (principal) | CPT/HCPCS: 99215 ==

== ENCOUNTER 2024-11-23 18:46 | Outpatient (REF) | payer MEDICARE, SELFPAY ==
[2024-11-23 21:24] LABS: Abs Immature Grans 0.02 10^3/uL (0.0-0.06); Absolute Basophil Count 0.04 10^3/uL (0.0-0.2); Absolute Eosinophil Count 0.28 10^3/uL (0.0-0.7); Absolute Lymphocyte Count 1.19 10^3/uL (1.2-3.4); Absolute Monocyte Count 0.72 10^3/uL (0.1-0.8); Absolute Neutrophil Count 4.74 10^3/uL (1.2-6.7); Basophils % 0.6 %; HCT 45.6 % (40.0-50.0); HGB 15.4 g/dL (13.5-17.5); Immature Grans % 0.3 %; MCH 29.9 pg (27.0-33.0); MCHC 33.8 % (32.0-36.0); MCV 89 fL (80-95); MPV 10.7 fL (8.0-11.0); Monocytes % 10.3 %; Neutrophils % 67.8 %; Platelet Count 193 10^3/uL (130-400); RBC 5.15 10^6/uL (4.36-5.78); RDW 13.9 % (11.8-14.1); RDW-SD 44.8 fL; WBC 6.99 10^3/uL (4.4-10.8)
[2024-11-23 21:34] LABS: ALT 36 U/L (16-63); AST 26 U/L (15-37); Albumin 3.9 g/dL (3.4-5.0); Alkaline Phosphatase 115 U/L (46-116); Anion Gap 4.7 mmol/L (3-11); BUN 31 mg/dL (7-18); Bilirubin, Total 0.4 mg/dL (0.2-1.0); CO2 30.3 mmol/L (21.0-32.0); CREATININE 1.6 mg/dL (0.70-1.30); Calcium 9.5 mg/dL (8.5-10.1); Chloride 105 mmol/L (98-107); Estimated GFR 43.56 (mL/min/1.73m2); Glucose 105 mg/dL (74-106); Potassium 4.6 mmol/L (3.5-5.1); Sodium 140 mmol/L (136-145); Total Protein 7.1 g/dL (6.4-8.2)
== END 2024-11-23 18:47 | disposition home or self-care (01) ==
LOC: NCHCN 18:46
PROVIDERS: PCP Family Medicine; Visit Provider Family Medicine
DX: N18.30 Chronic kidney disease, stage 3 unspecified (principal)
CPT/HCPCS: 80053; 85025

== ENCOUNTER 2024-11-27 00:39 | Outpatient (CLI) | payer MEDICARE, SELFPAY ==
[2024-11-27] MEDS: Omnipaque 350 MG/ML 100 ML BTL IJ (14:05)
[2024-11-27] MEDS: Normal Saline - Diluent 50 ML VIAL IJ (14:06)
--- NOTE | 2024-11-27 14:42 | DI.CT_ITS ---
Exam(s) CT LOWER EXTREMITY RT CTA EXAM: CT LOWER EXTREMITY RT CTA CLINICAL HISTORY: R CALF PAIN, PAIN IN R LOWER LEG M79.661. TECHNIQUE: Imaging Protocol: Axial CT angiography was performed with multi-slice acquisition and mu lti-planar and/or 3D reconstructions. CONTRAST MATERIAL: Intravenous: Omnipaque 350 Contrast volume:100 ml Contrast route:IV - Oral: / no COMPARISON: CT CT ABDOMEN PELVIS W from 09/22/2020 CR XR HIP RT COMPLETE AP PELVIS from 06/24/2024 US US LOWER EXTREMITY VENOUS RT from 11/18/2024 CR XR TIB/FIB RT from 11/18/2024 FINDINGS: Vascular Structures: Pelvis: Iliac Arteries: No evidence of stenosis. Mild calcific plaque bilateral. Common Femoral Arteries: No evidence of stenosis. Lower extremities: Right: Contrast seen to the level of the ankle. Common Femoral: Mild mural calcification. No evidence of stenosis. Deep femoral: Patent. Superficial Femoral: Mild mural calcification proximal. Mild calcific plaque distally. No evidence of stenosis. Popliteal: Mild calcific plaque. Knee Trifurcation: No evidence of stenosis. Mild calcific plaque. Posterior Tibial: No evidence of stenosis. Visualized to level of ankle Peroneal: No evidence of stenosis. Visualized to level of ankle. Soft tissues: No hematoma. No significant edema. The muscles are unremarkable. No soft tissue mass . Left: Contrast seen to the level of the ankle. Popliteal: Minimal plaque. No evidence of stenosis. Knee Trifurcation: No evidence of stenosis. Posterior Tibial: Mural irregularity throughout. No significant stenosis. Peroneal: Mural irregularity throughout. No significant stenosis. Pelvis: Bladder: Symmetric distention. Mild wall thickening. Bowel: No obstruction or bowel wall thickening. Diverticulosis noted in the descending and sigmoid colon. Peritoneal cavity: No ascites, collection or mesenteric inflammatory response. Bones: Advanced degenerative changes of the right hip. No suspicious lesions. The knee and ankle dinah ints are unremarkable. Enthesophyte at Achilles insertion on calcaneus. Reproductive: Markedly enlarged prostate. Soft Tissues: Large left inguinal hernia containing a loop of sigmoid colon as well as fat. No evide nce of incarceration. There is a small right inguinal hernia, containing a loop of small bowel which is nonobstructed. Vasectomy clips. IMPRESSION: Multifocal plaque in both lower extremity arteries without significant stenosis. Contrast is visuali zed to the level of the ankle and not distally which is likely secondary to contrast timing. Large left inguinal hernia containing a nonobstructed loop of sigmoid colon. Small right inguinal he rnia containing a loop of small bowel, also nonobstructed. RADIATION DOSE DELIVERED: Total DLP DATA REPOSITORY: All CT scans at this facility are submitted to the National Radiology Data Registry (NRDR) Dose Index Registry (DIR) with the [employer] (A[employer]). RADIATION OPTIMIZATION: All CT scans at this facility use at least one of these dose optimization te chniques: automated exposure control; mA and/or kV adjustment per patient size (includes targeted exa ms where dose is matched to clinical indication); or iterative reconstruction.
== END 2024-11-27 00:59 ==
LOC: DI 00:39
PROVIDERS: PCP Family Medicine; Visit Provider Family Medicine
DX: M79.661 Pain in right lower leg (principal); K40.90 Unilateral inguinal hernia, without obstruction or gangrene, not specified as recurrent
CPT/HCPCS: 73706; J3490

== ENCOUNTER → 2024-12-01 14:17 | Outpatient (BNVA) | payer MEDICARE, SELFPAY | PROVIDERS: PCP Family Medicine; Referring Provider Family Medicine; Visit Provider Podiatrist | DX: L60.0 Ingrowing nail (principal); N18.30 Chronic kidney disease, stage 3 unspecified; I73.89 Other specified peripheral vascular diseases; F17.200 Nicotine dependence, unspecified, uncomplicated; M79.671 Pain in right foot; I70.223 Atherosclerosis of native arteries of extremities with rest pain, bilateral legs; R25.2 Cramp and spasm | CPT/HCPCS: 11730 ==

== ENCOUNTER 2024-12-13 21:52 | Emergency (ER) | payer MEDICARE, SELFPAY ==
[2024-12-13] VITALS (9 sets, daily range): BP systolic 154–187; BP diastolic 61–86; PULSE 55–65; RESP 9–20; TEMP 35.5; O2SAT 95–100
--- NOTE | 2024-12-13 21:30 | RT.EKG_ITS ---
APPROVED REPORT Exam: Resting ECG Reason for Exam: chest pain Patient Location: E HR:53 bpm ECG Measurements Heart Rate 53 AXIS MS 169 P 64 QRSd 95 QRS 54 QT 441 T 55 QTc 415 Conclusion Sinus bradycardia, rate 53 No interval abnormalities No STEMI No significant changes from priors
--- NOTE | 2024-12-13 21:45 | DI.RAD_ITS ---
Exam(s) XR CHEST 2V PA LATERAL EXAM: XR CHEST 2V PA LATERAL CLINICAL HISTORY: Chest pain TECHNIQUE: 2D digital imaging was performed. Two views. COMPARISON: CR,XR XR PORTABLE CHEST AP from 03/12/2020 FINDINGS: HEART: Normal size. Aorta: Not dilated. PULMONARY VASCULATURE: Normal. MEDIASTINUM: Unremarkable. LUNGS: Clear. PLEURAL SPACE: No pleural effusion or pneumothorax. BONE:Degenerative changes of the shoulders and spine. SOFT TISSUES: Unremarkable. IMPRESSION: No acute abnormality. DATA REPOSITORY: RADIATION DOSE DELIVERED:
[2024-12-13 22:08] LABS: Abs Immature Grans 0.03 10^3/uL (0.0-0.06); Absolute Basophil Count 0.03 10^3/uL (0.0-0.2); Absolute Eosinophil Count 0.14 10^3/uL (0.0-0.7); Absolute Lymphocyte Count 0.97 10^3/uL (1.2-3.4); Absolute Monocyte Count 0.73 10^3/uL (0.1-0.8); Absolute Neutrophil Count 8.44 10^3/uL (1.2-6.7); Basophils % 0.3 %; Eosinophils % 1.4 %; HGB 14.8 g/dL (13.5-17.5); Immature Grans % 0.3 %; Lymphocytes % 9.4 %; MCH 28.8 pg (27.0-33.0); MCHC 32.9 % (32.0-36.0); MCV 88 fL (80-95); MPV 9.6 fL (8.0-11.0); Monocytes % 7.1 %; Neutrophils % 81.5 %; Platelet Count 163 10^3/uL (130-400); RBC 5.14 10^6/uL (4.36-5.78); RDW 13.5 % (11.8-14.1); RDW-SD 43.6 fL; WBC 10.34 10^3/uL (4.4-10.8)
[2024-12-13 22:18] LABS: INR 1.1 (0.9-1.1); Prothrombin Time 10.8 sec (9.1-11.1)
[2024-12-13] MEDS: Ondansetron 4 MG/2 ML VIAL IVP (22:27)
[2024-12-13] MEDS: Aspirin 81 MG CHEW 324 MG CH (22:27)
[2024-12-13 22:30] LABS: ALT 30 U/L (16-63); AST 20 U/L (15-37); Albumin 3.8 g/dL (3.4-5.0); Alkaline Phosphatase 93 U/L (46-116); Anion Gap 4.2 mmol/L (3-11); BUN 28 mg/dL (7-18); Bilirubin, Total 0.5 mg/dL (0.2-1.0); CO2 28.8 mmol/L (21.0-32.0); CREATININE 1.6 mg/dL (0.70-1.30); Calcium 9.4 mg/dL (8.5-10.1); Chloride 104 mmol/L (98-107); Estimated GFR 43.56 (mL/min/1.73m2); Glucose 165 mg/dL (74-106); Lipase 77 U/L (<78); Magnesium 1.9 mg/dL (1.8-2.4); NT-proBNP 50 pg/mL (<300); Potassium 4.1 mmol/L (3.5-5.1); Sodium 137 mmol/L (136-145); Total Protein 7.2 g/dL (6.4-8.2); Troponin I 8 ng/L (<or=76)
--- NOTE | 2024-12-13 22:36 | ED.GENADUL_ITS ---
Discharge Plan Disposition Patient Disposition: Home Condition: Stable Discharge Details Clinical Impression: Urinary tract infection, CKD (chronic kidney disease) stage 3, GFR 30-59 ml/min, History of urinary self-catheterization Primary Care Provider: Sameer Stevenson ED Provider: Meghan Zhang Home Meds and New Rx's Prescriptions: New cephalexin 500 mg capsule 500 mg PO QID 5 Days Qty: 20 0RF No Action allopurinol 100 mg tablet 50 mg PO DAILY Qty: 60 0RF Rx Instructions: Take 1/2 pill daily. colchicine 0.6 mg tablet 0.6 mg PO BID PRN Rx Instructions: 2 tablets now, follow with 1 tablet in 1 hour. Then, 1 tablet twice daily until symptoms resolve. After symptoms resolve 1 tablet every other day cholecalciferol (vitamin D3) 25 mcg (1,000 unit) capsule 2,000 unit PO DAILY amlodipine 5 mg tablet 5 mg PO DAILY Qty: 90 4RF rosuvastatin 20 mg tablet 20 mg PO DAILY aspirin 81 MG tablet,chewable 81 mg PO DAILY Probiotic 20 billion cell capsule 20,000 mmu cells PO .QOD nitroglycerin 0.4 mg tablet, sublingual 0.4 mg SL Q5M PRN (Reason: chest pain) Qty: 30 2RF Rx Instructions: do not exceed 3 doses per episode losartan [Cozaar] 100 mg tablet 100 mg PO DAILY Qty: 90 3RF metoprolol succinate 25 mg tablet extended release 24 hr See Rx Instructions .ROUTE .COMPLEX Qty: 90 3RF Dose Instruction: TAKE ONE TABLET BY MOUTH AT BEDTIME Rx Instructions: TAKE ONE TABLET BY MOUTH AT BEDTIME Discharge Instructions Instructions: Urinary Tract Infection, Adult ED Additional Instructions: You were seen in the emergency department today for evaluation of nausea and feeling unwell similar to your last heart attack. Reassuringly, in the emergency department today you did not have evidence of a heart attack on your EKG or your cardiac enzymes. You were found to have a urinary tract infection, and I do recommend that we start you on antibiotics. You received your first dose in the emergency department tonight, and I sent you home with the medications to take tomorrow on the holiday. 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 I also sent you home with a short course of medication to take for nausea to help you maintain your hydration. You need to follow-up with your primary care provider in the next few days to discuss this visit and any symptoms that change, worsen, or persist. You should return to the emergency department immediately if you develop change in responsiveness, chest pain, shortness of breath, or any other symptoms that cause you concern. Thank you for allowing us to be part of your care. HPI General Mode of arrival: EMS . Date/Time Provider Initiated Documentation: 12/13/24 21:53 . Limitations to Documentation: no limitations . Information obtained by: patient, family and old records reviewed . HPI Narrative: This is a 78-year-old male patient with a past medical history significant for OR, CKD, carotid stenosis, hypertension, hyperlipidemia, and peripheral artery disease. He is being brought in by EMS with a concern for heart attack. The patient was in his normal state of health until a few hours prior to arrival, when he began to just not feel good and specifically endorses nausea. He reports that he has not experienced any pain, fever, headache, chest pain, shortness of breath, or loss of consciousness. His saw him sitting in the chair complaining of not feeling well and recalled that this is very similar to his presentation when he had his heart attack. He has not tried any medications in the outpatient environment for the symptoms. EMS noted him to be hemodynamically appropriate with an EKG that did not meet STEMI criteria. Related Data Home Medications ?Medication ?Instructions ?Recorded ?Confirmed aspirin 81 mg chewable tablet 81 mg PO DAILY 07/11/17 12/13/24 lactobacillus comb no.10 20 20,000 mmu cells PO .QOD 03/22/20 12/13/24 billion cell capsule (Probiotic) cholecalciferol (vitamin D3) 25 2,000 unit PO DAILY 07/26/20 12/13/24 mcg (1,000 unit) capsule nitroglycerin 0.4 mg sublingual 0.4 mg sublingual Q5M PRN chest 09/16/20 12/13/24 tablet pain #30 tabs amlodipine 5 mg tablet 5 mg PO DAILY #90 tabs 08/17/21 12/13/24 losartan 100 mg tablet (Cozaar) 100 mg PO DAILY #90 tab-caps 11/20/21 12/13/24 allopurinol 100 mg tablet 50 mg (1/2 x 100 mg) PO DAILY #60 02/15/22 12/13/24 tabs colchicine 0.6 mg tablet 0.6 mg PO BID PRN 10/07/23 12/13/24 metoprolol succinate 25 mg See Rx Instructions .Route 05/14/24 12/13/24 tablet,extended release 24 hr .COMPLEX #90 tabs rosuvastatin 20 mg tablet 20 mg PO DAILY 11/23/24 12/13/24 cephalexin 500 mg capsule 500 mg PO QID 5 days #20 caps 12/13/24 Previous Rx's ?Medication ?Instructions ?Recorded nitroglycerin 0.4 mg sublingual 0.4 mg sublingual Q5M PRN chest 09/16/20 tablet pain #30 tabs amlodipine 5 mg tablet 5 mg PO DAILY #90 tabs 08/17/21 losartan 100 mg tablet (Cozaar) 100 mg PO DAILY #90 tab-caps 11/20/21 allopurinol 100 mg tablet 50 mg (1/2 x 100 mg) PO DAILY #60 02/15/22 tabs metoprolol succinate 25 mg See Rx Instructions .Route 05/14/24 tablet,extended release 24 hr .COMPLEX #90 tabs cephalexin 500 mg capsule 500 mg PO QID 5 days #20 caps 12/13/24 Allergies Allergy/AdvReac Type Severity Reaction Status Date / Time atorvastatin AdvReac Intermediate Other (See Verified 12/13/24 22:21 Comment) lisinopril AdvReac Unknown COUGH Verified 12/13/24 22:21 General Stated Complaint: GenMedical MATTHEW: 3 Exam Narrative Exam Narrative: Gen: awake and alert, in no apparent distress. Appears well nourished. HEENT: PERRL, EOMs full and without nystagmus. External ears and nose normal, mucous membranes moist. Neck: Supple, full range of motion, no observable masses Lungs: No increased work of breathing, lung sounds clear and equal bilaterally without wheezes, rhonchi, or rales. CV: Heart with regular rate and rhythm, no murmurs auscultated. Strong and symmetrical radial pulses. No tenderness to palpation of the chest wall Abdomen: Soft, nondistended, non-tender to palpation. No rigidity, rebound tenderness, or guarding. MSK: No joint swelling, no redness. Full ROM without limitation, no external traumatic findings. Skin: No rashes or lesions to visualized skin. Normal color, warm, and dry. Neuro: Cranial nerves II-XII intact and symmetrical bilaterally. 5/5 strength in all muscle groups x4 extremities. No sensory deficits. Ambulates with steady gait. Psych: Appropriate for situation. Course Vital Signs Vital signs: Vital Signs Temperature 35.5 C L 12/13/24 21:50 Pulse 57 L 12/13/24 21:50 Respiratory Rate 20 12/13/24 21:50 Blood Pressure 187/86 H 12/13/24 21:50 Pulse Oximetry 98 12/13/24 21:50 Temperature 35.5 C L 12/13/24 22:04 Temperature Source Temporal Artery Scan 12/13/24 22:04 Pulse 65 12/13/24 22:04 Respiratory Rate 20 12/13/24 22:07 Respiratory Effort Non-Labored, Short of Breath 12/13/24 22:07 Respiratory Depth Normal 12/13/24 22:07 Respiratory Pattern Normal 12/13/24 22:07 Blood Pressure 172/68 H 12/13/24 22:04 Pulse Oximetry 100 12/13/24 22:04 Oxygen Delivery Method Room Air 12/13/24 22:04 Pain Level 0 12/13/24 22:04 Lab/Test Results Lab/Test Results: Laboratory Tests Range/Units 12/13/24 21:58 WBC (4.4-10.8) 10^3/uL 10.34 RBC (4.36-5.78) 10^6/uL 5.14 Hgb (13.5-17.5) g/dL 14.8 Hct (40.0-50.0) % 45.0 MCV (80-95) fL 88 MCH (27.0-33.0) pg 28.8 MCHC (32.0-36.0) % 32.9 RDW (11.8-14.1) % 13.5 Plt Count (130-400) 10^3/uL 163 MPV (8.0-11.0) fL 9.6 Immature Gran % % 0.3 Neutrophils % % 81.5 Lymphocytes % % 9.4 Monocytes % % 7.1 Eosinophils % % 1.4 Basophils % % 0.3 Nucleated RBC % (0.0-0.3) % 0.0 Absolute Neutrophils (1.2-6.7) 10^3/uL 8.44 H Absolute Lymphocytes (1.2-3.4) 10^3/uL 0.97 L Absolute Monocytes (0.1-0.8) 10^3/uL 0.73 Absolute Eosinophils (0.0-0.7) 10^3/uL 0.14 Absolute Basophils (0.0-0.2) 10^3/uL 0.03 PT (9.1-11.1) sec 10.8 INR (0.9-1.1) 1.1 Sodium (136-145) mmol/L 137 Potassium (3.5-5.1) mmol/L 4.1 Chloride (98-107) mmol/L 104 Carbon Dioxide (21.0-32.0) mmol/L 28.8 Anion Gap (3-11) mmol/L 4.2 BUN (7-18) mg/dL 28 H Creatinine (0.70-1.30) mg/dL 1.6 H Est GFR (CKD-EPI 2020) (mL/min/1.73m2) 43.56 Glucose (74-106) mg/dL 165 H Calcium (8.5-10.1) mg/dL 9.4 Magnesium (1.8-2.4) mg/dL 1.9 Total Bilirubin (0.2-1.0) mg/dL 0.5 AST (15-37) U/L 20 ALT (16-63) U/L 30 Alkaline Phosphatase (46-116) U/L 93 Troponin I (<or=76) ng/L 8 NT-Pro-B Natriuret Pep (<300) pg/mL 50 Total Protein (6.4-8.2) g/dL 7.2 Albumin (3.4-5.0) g/dL 3.8 Lipase (<78) U/L 77 Medical Decision Making This is a 78-year-old male patient presenting for evaluation of nausea and general malaise. Differential includes but is not limited to cardiac etiologies including ACS, arrhythmia, pericarditis and myocarditis, heart failure exacerbation. Considered aortic pathology though the patient is without characteristic chest pain or neurodeficits. I considered intracranial hemorrhage, stroke, and other neuro abnormalities, though the patient is without neurodeficits, speech changes, or similar historical complaints. I considered metabolic electrolyte derangements, dehydration and kidney injury, intra- abdominal pathology including pancreatitis, gastroenteritis, and infectious etiologies including urinary tract infection, pneumonia. My initial EKG shows a sinus bradycardia with no evidence for acute ischemia, interval abnormality, or ectopy, and there is no change appreciated from the prior EKGs available at our facility or in comparison to the prehospital EKG. Will obtain laboratory studies to include CBC, CMP, magnesium, lipase, troponin, BNP, and urinalysis. - I independently interpreted the laboratory studies, which show no significant leukocytosis, anemia, or thrombocytopenia. The chemistry panel is without evidence of electrolyte abnormality, new kidney dysfunction, or liver injury. Lipase low, as is the BNP. His initial troponin was negative. Urinalysis is positive for trace blood and nitrites with pyuria and bacteriuria, concerning for UTI. Delta troponin negative, and then is this patient who has not had any chest pain, and has an alternative etiology for his symptoms, I do not see an indication to proceed with 3-hour Trop given it has been 6 hours since the onset of the symptoms. The patient's first dose of ceftriaxone was provided in the emergency department, and the remainder of his course of Keflex was provided via prescription and a 1 day take-home pack due to the holiday. I also provided him with a short course of Zofran for nausea. At this time, the patient has had a full medical evaluation and is safe for discharge to home. They are hemodynamically stable, ambulatory, and tolerating PO. They are understanding of the follow-up plan and return precautions. They left our facility without incident. Meghan Zhang MD Quality:SDOH Health Related Social Needs: No Data to Display PFSH All Active Problems (Updated 12/13/24 @ 23:36 by Meghan Zhang MD) History of urinary self-catheterization (Acute) Urinary tract infection (Acute) Rest pain of both lower extremities due to atherosclerosis (Acute) Pain in right foot (Acute) Ingrown toenail (Acute) PAD (peripheral artery disease) (Acute) Pain of right calf (Acute) Osteoarthritis, hip, bilateral (Acute) Coronary artery disease (Chronic) Regurgitation and rechewing of food (Acute) CKD (chronic kidney disease) stage 3, GFR 30-59 ml/min (Acute) Hydronephrosis (Acute) Urinary retention (Acute) Enlarged prostate (Acute) History of heart attack (Acute) 2020 Ejection fraction was preserved. He had an LAD stent and has nonobstructive disease in his left circumflex that was not addressed but was IFR negative. Followed by. Dr. hays/ Ren Carotid stenosis (Acute) 2020- 50%-69% ICA stenosis, mod soft plaques r>L Benign hypertension (Acute 06/24/13) Hyperlipidemia (Acute) Ptosis of left eyelid (Acute 05/30/17) Medical History Smoker Quit 1974 Syncope and collapse (10/25/08) Gout (06/10/14) Left inguinal hernia (07/09/16) not problematic to pt at this time Subarachnoid hemorrhage (04/15/12) Surgical History Vasectomy (~1974) Tonsillectomy and adenoidectomy (~1951) TOE REPAIR (~1959) Family History Mother , Age 94 OLD AGE No problems noted. Father , AGE 97 OLD AGE Essential hypertension Hyperlipidemia Sister No problems noted. Brother Essential hypertension Hypercholesterolemia Myocardial infarction Smoker Brother No problems noted. Brother No problems noted. Son No problems noted. Son No problems noted. Brother No problems noted. Maternal Grandfather No problems noted. Paternal Grandfather , age 91 No problems noted. Maternal Grandmother No problems noted. Paternal Grandmother , age 80 No problems noted. Social History Smoking/Tobacco Use Status: Former Tobacco Use tobacco type: cigarettes and pipe Quit Date: 07/22/73 Tobacco: How many years used: 10 Second Hand Exposure: Yes Smoking risk assessment performed?: Yes Alcohol Intake: current Alcohol Intake frequency: a few times a week Alcohol type: beer and wine Drug use: Never Substance use type: does not use Caregiver/Support person: No Household members: spouse Housing: house Communication Needs: None Do you need help understanding health information?: Never Pets and animals: Yes Pets and animals: cat(s) Sexually active: Yes Do you think of yourself as: straight/heterosexual Current gender identity: male What is your relationship status?: How often do you talk on the phone with friends or family?: three or more times per week How often do you get together with friends or relatives?: three or more times per week How often do you attend taoism or rastafarian services?: 1-3 times per year Do you belong to any clubs or organized social groups?: yes Panel score (0-1 are the most socially isolated patients): 3 What type of physical activity do you participate in: walking Duration: 30-45 minutes/day Frequency: 3-4 times per week Carol/Yazidism: No preference Special carol needs: No Seatbelt use: always Helmet use: Yes Helmet use: always Drive intox or ride w/intox class c driver: No Do you feel safe at home: Yes Do you feel safe in your relationship?: Yes
[2024-12-13 22:50] LABS: Bilirubin Negative (Negative); Blood Trace-intact (Negative); Glucose Negative (Negative); Ketones Negative (Negative); Leukocyte Esterase Small (Negative); Nitrite Positive (Negative); Specific Gravity 1.025 (1.005-1.025); Urobilinogen 0.2 mg/dL (Up to 0.2)
[2024-12-13 22:51] LABS: Clarity Cloudy (Clear)
[2024-12-13 22:56] LABS: Bacteria Many HPF (Negative); C & S Indicated? Yes; Casts Negative LPF (Negative); Crystals Negative HPF (Negative); Epithelial Cells Negative HPF (Negative); Mucus Negative (Negative); RBC 0-2 HPF (0-2); WBC 20-50 HPF (0-5)
--- NOTE | 2024-12-13 23:03 | DI.VRAD_ITS ---
PROCEDURE INFORMATION: Exam: XR Chest Exam date and time: 12/13/2024 10:23 PM Age: 78 years old Clinical indication: Other: Chest pain TECHNIQUE: Imaging protocol: Radiologic exam of the chest. Views: 2 views. COMPARISON: CR XR PORTABLE CHEST AP 03/12/2020 2:54 PM FINDINGS: Lungs: No pulmonary consolidation is seen. Pleural spaces: No pleural effusion or pneumothorax is demonstrated. Heart/Mediastinum: The heart appears normal in size. Bones/joints: There are degenerative changes at the acromioclavicular joints bilaterally, worse on the left. There are large osteophytes along the thoracic spinal margin. IMPRESSION: No active disease is seen in the chest. Dictated and Authenticated by: Dash Moreno MD. Orderin [facility] Rafael Christianson MD
[2024-12-13 23:27] LABS: Troponin I 7 ng/L (<or=76)
[2024-12-13] MEDS: cefTRIAXone 1 GM/50 ML BAG IVPB (23:40)
[2024-12-13] MEDS: Cephalexin 500 MG CAP, 4 CAPS/BTL PO (23:40)
[2024-12-13] MEDS: Ondansetron O.D.T. 4 MG TABEF, 3 TABS/BTL PO (23:40)
[2024-12-14 00:12] VITALS: BP 176/84; PULSE 56; RESP 16; O2SAT 100
== END 2024-12-14 00:15 | disposition home or self-care (01) ==
PROVIDERS: Emergency Provider Emergency Medicine; PCP Family Medicine
DX: N39.0 Urinary tract infection, site not specified (principal); E78.5 Hyperlipidemia, unspecified; I10 Essential (primary) hypertension; I12.9 Hypertensive chronic kidney disease with stage 1 through stage 4 chronic kidney disease, or unspecified chronic kidney disease; N18.30 Chronic kidney disease, stage 3 unspecified; I25.2 Old myocardial infarction; Z79.82 Long term (current) use of aspirin; Z87.891 Personal history of nicotine dependence
CPT/HCPCS: 36415; 80053; 83690; 87077; 93005; 96365; 99284; 71046; 81003; 81015; 83735; 83880; 84484; 85025; 85610; 87086; 87186; 93010; J0696; J2405

== ENCOUNTER → 2024-12-15 15:24 | Outpatient (BNVA) | payer MEDICARE, SELFPAY | PROVIDERS: PCP Family Medicine; Referring Provider Family Medicine; Visit Provider Nurse Practitioner Gerontology | DX: N39.0 Urinary tract infection, site not specified (principal); R33.9 Retention of urine, unspecified; B96.89 Other specified bacterial agents as the cause of diseases classified elsewhere; Z16.19 Resistance to other specified beta lactam antibiotics | CPT/HCPCS: 99213 ==

== ENCOUNTER → 2024-12-17 11:03 | Outpatient (BNVA) | payer MEDICARE, SELFPAY | PROVIDERS: PCP Family Medicine; Referring Provider Family Medicine; Visit Provider Physician Assistant | DX: M16.0 Bilateral primary osteoarthritis of hip (principal) | CPT/HCPCS: 20611; J1010 ==

== ENCOUNTER 2024-12-28 18:28 | Outpatient (REF) | payer MEDICARE, SELFPAY ==
[2024-12-28 14:10] LABS: Bilirubin Negative (Negative); Blood Negative (Negative); Clarity Clear (Clear); Glucose Negative (Negative); Ketones Negative (Negative); Leukocyte Esterase Negative (Negative); Nitrite Negative (Negative); Urobilinogen 0.2 mg/dL (Up to 0.2)
== END 2024-12-28 18:29 | disposition home or self-care (01) ==
LOC: LBN 18:28
PROVIDERS: Nurse Practitioner Gerontology; PCP Family Medicine; Visit Provider Student in an Organized Health Care Education/Training Program
DX: N39.0 Urinary tract infection, site not specified (principal)
CPT/HCPCS: 81003

== ENCOUNTER 2025-02-02 03:41 | Outpatient (CLI) | payer MEDICARE, SELFPAY ==
[2025-02-02 10:10] LABS: BUN 25 mg/dL (7-18); Estimated GFR 46.77 (mL/min/1.73m2)
== END 2025-02-02 03:42 | disposition home or self-care (01) ==
PROVIDERS: PCP Family Medicine; Visit Provider Nurse Practitioner Gerontology
DX: N18.30 Chronic kidney disease, stage 3 unspecified (principal); N13.30 Unspecified hydronephrosis; R33.9 Retention of urine, unspecified; N40.0 Benign prostatic hyperplasia without lower urinary tract symptoms; R31.9 Hematuria, unspecified
CPT/HCPCS: 36415; 84520; 82565

== ENCOUNTER 2025-02-17 02:24 | Outpatient (CLI) | payer MEDICARE, SELFPAY ==
--- NOTE | 2025-02-17 | DI.MRI_ITS ---
Exam(s) MR LUMBAR SPINE WO EXAM: MR LUMBAR SPINE WO CLINICAL HISTORY: SPINAL STENOSIS,M48.07. TECHNIQUE: Multiplanar multisequence MRI of the Lumbar spine was performed. COMPARISON: CT CT ABDOMEN PELVIS W from 09/22/2020 FINDINGS: Exam somewhat limited by motion. Bones: The last intervertebral disc space is designated the L5/S1 level for the numbering purpose of this examination. The vertebral body heights are well maintained. Alignment: Unremarkable. The marrow signal characteristics are unremarkable. Cord: The conus tip ends at the T12 level. It is of normal size and signal intensity. T12-L1: No focal disc herniation is present. No central spinal canal stenosis.No neural foraminal stenosis. L1-2: No focal disc herniation is present. No central spinal canal stenosis.No neural foraminal stenosis. L2-3: No focal disc herniation is present. No central spinal canal stenosis. No neural foraminal stenosis. L3-4: No focal disc herniation is present. Facet degenerative changes and ligamentous hypertrophy cause mild central canal stenosis.No neural foraminal stenosis. L4-5: Broad-based disc bulging. Superimposed right paracentral disc protrusion. Severe facet degenerative changes and ligamentous hypertrophy combine to produce severe central canal stenosis. There is [id number] bilateral neural foraminal narrowing. L5-S1: No focal disc herniation is present. Prominent facet degenerative changes on the right. No central spinal canal stenosis.No neural foraminal stenosis. The visualized SI joints and sacrum are unremarkable. Soft tissues: The paraspinal soft tissues are unremarkable. IMPRESSION: Concentric and right paracentral disc protrusion at L4-5 combine with severe facet degenerative changes and ligamentous hypertrophy to produce severe central canal stenosis as well as bilateral neural foraminal narrowing. DATA REPOSITORY:
== END 2025-02-17 02:44 ==
LOC: DI 02:24
PROVIDERS: PCP Family Medicine; Visit Provider Family Medicine
DX: M48.07 Spinal stenosis, lumbosacral region (principal); M99.61 Osseous and subluxation stenosis of intervertebral foramina of cervical region
CPT/HCPCS: 72148

== ENCOUNTER → 2025-03-23 13:42 | Outpatient (BNVA) | payer MEDICARE, SELFPAY | PROVIDERS: PCP Family Medicine; Visit Provider Nurse Practitioner Gerontology | DX: R33.9 Retention of urine, unspecified (principal); N13.30 Unspecified hydronephrosis; N18.30 Chronic kidney disease, stage 3 unspecified; N40.0 Benign prostatic hyperplasia without lower urinary tract symptoms | CPT/HCPCS: 99214 ==

== ENCOUNTER 2025-04-12 17:37 | Outpatient (REF) | payer MEDICARE, SELFPAY ==
[2025-04-12 21:28] LABS: HCT 44.4 % (40.0-50.0); HGB 14.6 g/dL (13.5-17.5); MCH 29.0 pg (27.0-33.0); MCHC 32.9 % (32.0-36.0); MCV 88 fL (80-95); MPV 10.3 fL (8.0-11.0); Platelet Count 208 10^3/uL (130-400); RBC 5.04 10^6/uL (4.36-5.78); RDW 13.6 % (11.8-14.1); RDW-SD 43.4 fL; WBC 8.06 10^3/uL (4.4-10.8)
[2025-04-12 21:37] LABS: Anion Gap 5.9 mmol/L (3-11); BUN 24 mg/dL (7-18); CO2 28.1 mmol/L (21.0-32.0); Calcium 9.6 mg/dL (8.5-10.1); Chloride 105 mmol/L (98-107); Estimated GFR 43.29 (mL/min/1.73m2); Glucose 101 mg/dL (74-106); Potassium 4.7 mmol/L (3.5-5.1); Sodium 139 mmol/L (136-145)
== END 2025-04-12 17:38 | disposition home or self-care (01) ==
LOC: NCHCN 17:37
PROVIDERS: PCP Family Medicine; Visit Provider Family Medicine
DX: Z01.818 Encounter for other preprocedural examination (principal)
CPT/HCPCS: 80048; 85027

== ENCOUNTER 2025-04-15 08:42 | Emergency (ER) | payer MEDICARE, SELFPAY ==
[2025-04-15] VITALS (43 sets, daily range): BP systolic 127–153; BP diastolic 56–65; PULSE 59–66; RESP 9–17; TEMP 35.8; O2SAT 93–97
--- NOTE | 2025-04-15 08:30 | RT.EKG_ITS ---
APPROVED REPORT Exam: Resting ECG Reason for Exam: Chest Pain Patient Location: E HR:63 bpm ECG Measurements Heart Rate 63 AXIS IL 160 P 70 QRSd 87 QRS 65 QT 393 T 66 QTc 403 Conclusion Sinus rhythm...normal P axis, V-rate 60- 99 I have reviewed and interpreted ECG and agree with software generated interpretation.
--- NOTE | 2025-04-15 08:45 | DI.RAD_ITS ---
Exam(s) XR PORTABLE CHEST AP EXAM: XR PORTABLE CHEST AP CLINICAL HISTORY: chest pain TECHNIQUE: 2D digital imaging was performed. COMPARISON: CR,XR XR CHEST 2V PA LATERAL from 12/13/2024 FINDINGS: LUNGS: Clear. No pleural abnormality seen. HEART: Normal size. AORTA: Normal diameter. BONES: Unremarkable for age. Soft tissues: Unremarkable. IMPRESSION: No acute findings. DATA REPOSITORY: RADIATION DOSE DELIVERED:
[2025-04-15 09:04] LABS: Abs Immature Grans 0.05 10^3/uL (0.0-0.06); HCT 44.1 % (40.0-50.0); HGB 14.5 g/dL (13.5-17.5); Immature Grans % 0.4 %; MCH 28.9 pg (27.0-33.0); MCHC 32.9 % (32.0-36.0); MCV 88 fL (80-95); MPV 9.7 fL (8.0-11.0); Platelet Count 167 10^3/uL (130-400); RBC 5.01 10^6/uL (4.36-5.78); RDW 13.5 % (11.8-14.1); RDW-SD 43.6 fL; WBC 11.99 10^3/uL (4.4-10.8)
--- NOTE | 2025-04-15 09:12 | W.ED.GENAD ---
Discharge Plan Disposition Patient Disposition: Home Condition: Good Discharge Details Clinical Impression: Chest discomfort Primary Care Provider: Sameer Stevenson ED Provider: Carl Garcia Home Meds and New Rx's Prescriptions: No Action allopurinol 100 mg tablet 50 mg PO DAILY Qty: 60 0RF Rx Instructions: Take 1/2 pill daily. colchicine 0.6 mg tablet 0.6 mg PO BID PRN Rx Instructions: 2 tablets now, follow with 1 tablet in 1 hour. Then, 1 tablet twice daily until symptoms resolve. After symptoms resolve 1 tablet every other day cholecalciferol (vitamin D3) 25 mcg (1,000 unit) capsule 2,000 unit PO DAILY amlodipine 5 mg tablet 5 mg PO DAILY Qty: 90 4RF rosuvastatin 20 mg tablet 20 mg PO DAILY aspirin 81 MG tablet,chewable 81 mg PO DAILY Probiotic 20 billion cell capsule 20,000 mmu cells PO .QOD nitroglycerin 0.4 mg tablet, sublingual 0.4 mg SL Q5M PRN (Reason: chest pain) Qty: 30 2RF Rx Instructions: do not exceed 3 doses per episode losartan [Cozaar] 100 mg tablet 100 mg PO DAILY Qty: 90 3RF metoprolol succinate 25 mg tablet extended release 24 hr See Rx Instructions .ROUTE .COMPLEX Qty: 90 3RF Dose Instruction: TAKE ONE TABLET BY MOUTH AT BEDTIME Rx Instructions: TAKE ONE TABLET BY MOUTH AT BEDTIME Discharge Instructions Instructions: Chest pain Additional Instructions: At this time your laboratory and imaging workup has returned reassuring. There is no evidence of significant acute abnormality, cardiac dysfunction, pancreatitis, or chest pathology. Please make sure to let your surgeons know that you were given 324 mg of aspirin by the EMS paramedics prior to arrival to the ED. If you notice any worsening of your symptoms, or any new symptoms such as vomiting, diarrhea, fever, chills, shortness of breath, chest pain, numbness, weakness, or fainting , please return immediately to the emergency department for reevaluation. Please follow up with your primary care provider as soon as possible for reassessment and reevaluation. As always, it was a pleasure participating in your medical care today. Referrals: Sameer Stevenson MD [Primary Care Provider, Medicine] HPI General Date/Time Provider Initiated Documentation: 04/15/25 09:12. HPI Narrative: This is a 79-year-old male patient with a past medical history significant for [place], previous stent over 5 years ago, CKD, carotid stenosis, hypertension, hyperlipidemia, and peripheral artery disease, who presents today for evaluation of chest pain. Patient has chronic low back and hip pain, he was scheduled to have surgery in the upcoming weeks. Because of this he has not been on his daily aspirin as prescribed secondary to request from the surgical team. He has been doing well except for this morning when he woke up and had notable chest pains/pressure/tightness, with associated diaphoresis. EMS was called, he was given 4 baby aspirin and 1 nitroglycerin which relieved his symptoms completely. He came to the ER for further assessment. Currently he denies any complaints. He denies any chest pain or tightness. Over the past week he denies any exertional dyspnea or chest discomfort. He states he does not recall what his symptoms felt like when he had his last heart attack 5+ years ago. No change in medications otherwise. No other complaints at this time. Related Data Home Medications ?Medication ?Instructions ?Recorded ?Confirmed aspirin 81 mg chewable tablet 81 mg PO DAILY 07/11/17 03/23/25 lactobacillus comb no.10 20 20,000 mmu cells PO .QOD 03/22/20 03/23/25 billion cell capsule (Probiotic) cholecalciferol (vitamin D3) 25 2,000 unit PO DAILY 07/26/20 03/23/25 mcg (1,000 unit) capsule nitroglycerin 0.4 mg sublingual 0.4 mg sublingual Q5M PRN chest 09/16/20 03/23/25 tablet pain #30 tabs amlodipine 5 mg tablet 5 mg PO DAILY #90 tabs 08/17/21 03/23/25 losartan 100 mg tablet (Cozaar) 100 mg PO DAILY #90 tab-caps 11/20/21 03/23/25 allopurinol 100 mg tablet 50 mg (1/2 x 100 mg) PO DAILY #60 02/15/22 03/23/25 tabs colchicine 0.6 mg tablet 0.6 mg PO BID PRN 10/07/23 03/23/25 metoprolol succinate 25 mg See Rx Instructions .Route 05/14/24 03/23/25 tablet,extended release 24 hr .COMPLEX #90 tabs rosuvastatin 20 mg tablet 20 mg PO DAILY 11/23/24 03/23/25 Previous Rx's ?Medication ?Instructions ?Recorded nitroglycerin 0.4 mg sublingual 0.4 mg sublingual Q5M PRN chest 09/16/20 tablet pain #30 tabs amlodipine 5 mg tablet 5 mg PO DAILY #90 tabs 08/17/21 losartan 100 mg tablet (Cozaar) 100 mg PO DAILY #90 tab-caps 11/20/21 allopurinol 100 mg tablet 50 mg (1/2 x 100 mg) PO DAILY #60 02/15/22 tabs metoprolol succinate 25 mg See Rx Instructions .Route 05/14/24 tablet,extended release 24 hr .COMPLEX #90 tabs Allergies Allergy/AdvReac Type Severity Reaction Status Date / Time atorvastatin AdvReac Intermediate Other (See Verified 03/23/25 13:51 Comment) lisinopril AdvReac Unknown COUGH Verified 03/23/25 13:51 General Stated Complaint: Chest Pain MATTHEW: 3 Exam Narrative Exam Narrative: 1.Const: Well-nourished, Well-developed, appearing stated age 2.Eyes: PERRL, no conjunctival injection, and symmetrical lids. 3.ENT: Atraumatic external nose and ears. Moist MM. Neck: Symmetric, trachea midline, No thyromegaly. 4.CVS: +S1/S2, Peripheral pulses 2+ and equal in all extremities. Brisk capillary refill in all extremities. 5.RESP: Unlabored respiratory effort. Clear to auscultation bilaterally. No wheezes rales or rhonchi 6.GI: Soft, Nontender/Nondistended, No hepatosplenomegaly. No guarding or rebound. 7.MSK: Normocephalic/Atraumatic, Extremities w/o deformity or ttp No cyanosis or clubbing, Normal movement of all extremities 8.Skin: Warm, Dry. No rashes or lesions. 9.Neuro: oleo hasher and renderer II-XII grossly intact. Sensation grossly intact, no focal neurologic deficits. 10.Psych: (AAO) x3. Appropriate mood and affect Course Vital Signs Vital signs: Vital Signs Pulse 64 04/15/25 08:43 Respiratory Rate 16 04/15/25 08:43 Blood Pressure 153/65 H 04/15/25 08:43 Pulse Oximetry 97 04/15/25 08:43 Temperature 35.8 C L 04/15/25 08:52 Temperature Source Temporal Artery Scan 04/15/25 08:52 Pulse 64 04/15/25 08:43 Respiratory Rate 16 04/15/25 08:43 Blood Pressure 153/65 H 04/15/25 08:43 Pulse Oximetry 97 04/15/25 08:43 Oxygen Delivery Method Room Air 04/15/25 08:43 Oxygen Flow Rate 0 04/15/25 08:43 Lab/Test Results Lab/Test Results: Laboratory Tests Range/Units 04/15/25 08:55 WBC (4.4-10.8) 10^3/uL 11.99 H RBC (4.36-5.78) 10^6/uL 5.01 Hgb (13.5-17.5) g/dL 14.5 Hct (40.0-50.0) % 44.1 MCV (80-95) fL 88 MCH (27.0-33.0) pg 28.9 MCHC (32.0-36.0) % 32.9 RDW (11.8-14.1) % 13.5 Plt Count (130-400) 10^3/uL 167 MPV (8.0-11.0) fL 9.7 Immature Gran % % 0.4 Neutrophils % % 86.0 Lymphocytes % % 4.6 Monocytes % % 7.3 Eosinophils % % 1.4 Basophils % % 0.3 Nucleated RBC % (0.0-0.3) % 0.0 Absolute Neutrophils (1.2-6.7) 10^3/uL 10.31 H Absolute Lymphocytes (1.2-3.4) 10^3/uL 0.55 L Absolute Monocytes (0.1-0.8) 10^3/uL 0.88 H Absolute Eosinophils (0.0-0.7) 10^3/uL 0.17 Absolute Basophils (0.0-0.2) 10^3/uL 0.04 Medical Decision Making This is a 79-year-old male patient with a past medical history significant for [place], previous stent over 5 years ago, CKD, carotid stenosis, hypertension, hyperlipidemia, and peripheral artery disease, who presents today for evaluation of chest pain. Patient has chronic low back and hip pain, he was scheduled to have surgery in the upcoming weeks. Because of this he has not been on his daily aspirin as prescribed secondary to request from the surgical team. He has been doing well except for this morning when he woke up and had notable chest pains/pressure/tightness, with associated diaphoresis. EMS was called, he was given 4 baby aspirin and 1 nitroglycerin which relieved his symptoms completely. He came to the ER for further assessment. Currently he denies any complaints. He denies any chest pain or tightness. Over the past week he denies any exertional dyspnea or chest discomfort. He states he does not recall what his symptoms felt like when he had his last heart attack 5+ years ago. No change in medications otherwise. No other complaints at this time. Exam demonstrates a well-appearing male, no acute distress. Vital signs normal. Differential includes ACS, vasospasm, less likely pleuritic etiology. Will evaluate for cardiac etiology, will monitor closely and reassess. No pleuritic chest pain to suggest PE, no tearing or ripping sensation to suggest dissection. We will order lipase for evaluation of potential pancreatitis. 12:58 PM Laboratory workup has returned, minimal white count at 11.9, no bandemia. Platelets normal. Electrolytes normal, renal function stable at chronic baseline. Lipase normal, serial troponins at initial, 1 hour and 3-hour troponins are all normal with no evidence of increase or abnormality. Lipase normal suggesting no pancreatitis. Chest x-ray negative for acute process per radiology. Patient continues to feel well. He has had no chest pain or discomfort whatsoever while here at the emergency department. Symptoms inconsistent with dissection or PE. No evidence of ACS. No evidence of STEMI. Symptoms are clinically inconsistent with life-threatening etiology at this time. I do not see an indication for inpatient admission, but I do recommend close PCP follow-up for further assessment and evaluation on a nonemergent basis. Additionally we have recommended that the patient make sure's to let their surgeons know that he was given 324mg of aspirin prior to ED arrival. Otherwise patient stable for discharge at this time. Discussed red flags which to return. I have extensively reviewed the treatment plan and discharge instructions with the patient and their family. I have addressed all patient concerns at this time. The patient and family was made aware of what symptoms to monitor for that would warrant a return to the emergency department. Discussed the plan with the patient and family, they demonstrate verbal understanding and agreement with our assessment and plan at this time. The documentation in this chart was dictated using Dragon dictation software. Please excuse any dictation errors. FINDINGS: LUNGS: Clear. No pleural abnormality seen. HEART: Normal size. AORTA: Normal diameter. BONES: Unremarkable for age. Soft tissues: Unremarkable. IMPRESSION: No acute findings. PFSH All Active Problems (Updated 04/15/25 @ 12:56 by Carl Garcia DO) Chest discomfort (Acute) Rest pain of both lower extremities due to atherosclerosis (Acute) Pain in right foot (Acute) Ingrown toenail (Acute) PAD (peripheral artery disease) (Acute) Pain of right calf (Acute) Osteoarthritis, hip, bilateral (Acute) POCUS injection right hip: 12/17/2024 Coronary artery disease (Chronic) Regurgitation and rechewing of food (Acute) CKD (chronic kidney disease) stage 3, GFR 30-59 ml/min (Acute) Hydronephrosis (Acute) Urinary retention (Acute) Enlarged prostate (Acute) History of heart attack (Acute) 2019 Ejection fraction was preserved. He had an LAD stent and has nonobstructive disease in his left circumflex that was not addressed but was IFR negative. Followed by. Dr. hays/ Ren Carotid stenosis (Acute) 2019- 50%-69% ICA stenosis, mod soft plaques r>L Benign hypertension (Acute 06/24/13) Hyperlipidemia (Acute) Ptosis of left eyelid (Acute 05/30/17) Medical History Smoker Quit 1974 Syncope and collapse (10/25/08) Gout (06/10/14) Left inguinal hernia (07/09/16) not problematic to pt at this time Subarachnoid hemorrhage (04/15/12) Surgical History Vasectomy (~1974) Tonsillectomy and adenoidectomy (~1951) TOE REPAIR (~1959) Family History Mother , Age 94 OLD AGE No problems noted. Father , AGE 97 OLD AGE Essential hypertension Hyperlipidemia Sister No problems noted. Brother Essential hypertension Hypercholesterolemia Myocardial infarction Smoker Brother No problems noted. Brother No problems noted. Son No problems noted. Son No problems noted. Brother No problems noted. Maternal Grandfather No problems noted. Paternal Grandfather , age 91 No problems noted. Maternal Grandmother No problems noted. Paternal Grandmother , age 80 No problems noted. Social History Smoking/Tobacco Use Status: Former Tobacco Use tobacco type: cigarettes and pipe Quit Date: 07/22/73 Tobacco: How many years used: 10 Second Hand Exposure: Yes Smoking risk assessment performed?: Yes Alcohol Intake: current Alcohol Intake frequency: a few times a week Alcohol type: beer and wine Drug use: Never Substance use type: does not use Caregiver/Support person: No Household members: spouse Housing: house Communication Needs: None Do you need help understanding health information?: Never Pets and animals: Yes Pets and animals: cat(s) Sexually active: Yes Do you think of yourself as: straight/heterosexual Current gender identity: male What is your relationship status?: How often do you talk on the phone with friends or family?: three or more times per week How often do you get together with friends or relatives?: three or more times per week How often do you attend restoration or episcopal services?: 1-3 times per year Do you belong to any clubs or organized social groups?: yes Panel score (0-1 are the most socially isolated patients): 3 What type of physical activity do you participate in: walking Duration: 30-45 minutes/day Frequency: 3-4 times per week Carol/Moravian: No preference Special carol needs: No Seatbelt use: always Helmet use: Yes Helmet use: always Drive intox or ride w/intox dedicated regional driver: No Do you feel safe at home: Yes Do you feel safe in your relationship?: Yes
[2025-04-15 09:16] LABS: INR 1.0 (0.9-1.1); PTT Activated 25.6 sec (20.6-30.2); Prothrombin Time 10.4 sec (9.1-11.1)
[2025-04-15 09:39] LABS: ALT 24 U/L (16-63); AST 16 U/L (15-37); Albumin 3.5 g/dL (3.4-5.0); Alkaline Phosphatase 102 U/L (46-116); Anion Gap 5.9 mmol/L (3-11); BUN 23 mg/dL (7-18); Bilirubin, Total 0.4 mg/dL (0.2-1.0); CO2 28.1 mmol/L (21.0-32.0); Calcium 9.0 mg/dL (8.5-10.1); Chloride 105 mmol/L (98-107); Estimated GFR 43.29 (mL/min/1.73m2); Glucose 160 mg/dL (74-106); Lipase 65 U/L (<78); Potassium 4.5 mmol/L (3.5-5.1); Sodium 139 mmol/L (136-145); Total Protein 7.0 g/dL (6.4-8.2); Troponin I 8 ng/L (<or=76)
[2025-04-15 10:35] LABS: Troponin I 9 ng/L (<or=76)
[2025-04-15 12:16] LABS: Troponin I 9 ng/L (<or=76)
== END 2025-04-15 13:05 | disposition home or self-care (01) ==
PROVIDERS: Emergency Provider Student in an Organized Health Care Education/Training Program; PCP Family Medicine
DX: R07.9 Chest pain, unspecified (principal); I25.10 Atherosclerotic heart disease of native coronary artery without angina pectoris; I25.2 Old myocardial infarction; I11.0 Hypertensive heart disease with heart failure; N18.9 Chronic kidney disease, unspecified; Z95.5 Presence of coronary angioplasty implant and graft; Z79.82 Long term (current) use of aspirin
CPT/HCPCS: 80053; 83690; 93005; 99284; 71045; 84484; 85025; 85610; 85730; 93010

== ENCOUNTER 2025-04-16 11:59 | Outpatient (REF) | payer MEDICARE, SELFPAY ==
[2025-04-16 12:43] LABS: Glucose Negative (Negative)
[2025-04-16 12:54] LABS: C & S Indicated? Yes; RBC 0-2 HPF (0-2)
== END 2025-04-16 12:00 | disposition home or self-care (01) ==
LOC: LBN 11:59
PROVIDERS: PCP Family Medicine; Visit Provider Urology
DX: R33.9 Retention of urine, unspecified (principal); B96.1 Klebsiella pneumoniae [K. pneumoniae] as the cause of diseases classified elsewhere
CPT/HCPCS: 87077; 81003; 81015; 87086; 87186

== ENCOUNTER 2025-07-12 01:41 | Outpatient (CLI) | payer MEDICARE, SELFPAY ==
[2025-07-12 12:04] LABS: BUN 19 mg/dL (9-23)
[2025-07-12 18:44] LABS: PSA, Diagnostic 6.6 ng/mL (<=6.5)
== END 2025-07-12 01:42 | disposition home or self-care (01) ==
LOC: LBO 01:41
PROVIDERS: PCP Family Medicine; Visit Provider Nurse Practitioner Gerontology
DX: R33.9 Retention of urine, unspecified (principal); N18.30 Chronic kidney disease, stage 3 unspecified; N13.30 Unspecified hydronephrosis; N40.0 Benign prostatic hyperplasia without lower urinary tract symptoms
CPT/HCPCS: 36415; 84520; 82565; 84153